=== PATIENT | female | born 1960 | race Caucasian/White ===

== ENCOUNTER 2022-01-05 14:21 | Outpatient (CLI) | payer OTHER, SELFPAY ==
--- NOTE | 2022-01-05 14:33 | US_ITS ---
STUDY: THYROID ULTRASOUND REASON FOR EXAM: Female, 61 years old. NONTOXIC GOITER TECHNIQUE: Ultrasound evaluation of the thyroid was performed with real-time and static ponce-scale imaging. COMPARISON: None. FINDINGS: RIGHT LOBE: The right lobe of the thyroid gland measures 4.9 x 1.8 x 1.5 cm. There is a homogeneous echotexture. Nodule 1:14 x 7 x 9 mm solid hypoechoic wider than tall ill-defined marginated nodule with punctate echogenic foci (TR 5) in the inferior right lobe and ultrasound-guided biopsy is recommended. LEFT LOBE: The left lobe of the thyroid gland measures 4.7 x 1.2 x 1.6 cm. There is a homogeneous echotexture. There are no demonstrated solid, cystic or complex lesions. ISTHMUS: The isthmus measures 3 mm thick. . The regional lymph nodes are normal. US/Thyroid IMPRESSION: Dominant nodule in the right lobe with possible microcalcification and ultrasound-guided biopsy is recommended. Electronically Signed: Jr Veronica MD at 17:54 EST ,
--- NOTE | 2022-01-05 14:33 | CT_ITS ---
STUDY: CT SOFT TISSUE NECK WITHOUT CONTRAST REASON FOR EXAM: Female, 61 years old. LOCALIZED SWELLING RADIATION DOSAGE (If Supplied By Facility): CTDIvol = ( 15.32 ) mGy, DLP = ( 390.33 ) mGycm TECHNIQUE: The patient was scanned in a multi-detector CT scanner. High resolution transaxial imaging was performed without the administration of intravenous contrast material. Sagittal and coronal images were reconstructed. Individualized dose optimization techniques were used for this CT. COMPARISON: None. FINDINGS: Normal bilateral parotid glands. Normal bilateral pawn broker spaces. Normal bilateral parapharyngeal spaces. Normal bilateral carotid spaces. Normal bilateral sublingual and submandibular glands and spaces. Normal visualized nasopharynx. Normal retropharyngeal space. Normal perivertebral space. Normal visualized bilateral faucial tonsils. The visualized tongue, tongue base and oropharynx are normal. The visualized cervical lymph nodes (levels I-) are within normal size limits, and maintain normal morphology. There is no demonstrated solid or cystic mass lesion. Normal epiglottis, bilateral vallecula and hypopharynx. The pre-epiglottic and paraglottic adipose spaces are normal. Normal visualized bilateral piriform sinuses, aryepiglottic folds, vocal cords, and arytenoid-cricoid articulations. Normal subglottic trachea. Normal bilateral lobes of the thyroid gland. Normal visualized pulmonary apices. Normal visualized paranasal sinuses. Normal visualized cervical spine. CT/Soft Tissue Neck without Contr IMPRESSION: Normal unenhanced CT examination of the soft tissues of the neck. Electronically Signed: Jr Veronica MD at 15:08 EST ,
== END 2022-01-05 23:59 | disposition home or self-care (01) ==
PROVIDERS: PCP Family Medicine Geriatric Medicine; Referring Provider Family Medicine Geriatric Medicine; Visit Provider Family Medicine Geriatric Medicine
DX: E04.9 Nontoxic goiter, unspecified (principal); R22.1 Localized swelling, mass and lump, neck
CPT/HCPCS: 70490; 76536

== ENCOUNTER 2022-02-05 13:32 | Outpatient (CLI) | payer OTHER, SELFPAY ==
--- NOTE | 2022-02-05 09:00 | ASPS_PTH ---
PATIENT: MANJINDER PRICE LOC: LAB U#:[id number] AGE/SX: 61/F ROOM: RE02/05/[address]: Dr. Savage Caro MD : 1960 BED: DIS: 02/05/2022 SPEC #: [id number] RECD: 02/05/22 13:26 STATUS: HOLDEN REAyaka #: [id number] RAO: 02/05/22 09:[address]: Savage Caro DEPT: CYTOLOGY RECD BY: Roseanne Fernandez ENTERED: 02/05/22 13:46 SP TYPE: ASPIRATION OTHR DR: Dr. Danilo Medina MD Tissues: Thyroid gland, NOS Procedures: Special Stain Group II Cytology Other HEADER OPERATION: Right thyroid, fine needle aspiration PRE-OP DIAGNOSIS: Right thyroid nodule TISSUE SUBMITTED: Right thyroid x6 slides DIAGNOSIS CYTOLOGY Right thyroid nodule, fine needle aspiration (smears): Consistent with benign follicular/colloid nodule. Adequate for evaluation. See comment. JOSE:juwan 02/06/2022 COMMENT Correlation with clinical, radiologic findings and appropriate follow up are necessary. CYTOLOGY STUDY Slides are reviewed. CYTOLOGY GROSS Received are six smears labeled with the patient's name and designated per the requisition as right thyroid. Submitted for staining. / juwan 02/05/2022 TC:5 CPT: 41605
== END 2022-02-05 23:59 | disposition home or self-care (01) ==
LOC: LAB 13:35
PROVIDERS: PCP Family Medicine Geriatric Medicine; Visit Provider Surgery
DX: E04.1 Nontoxic single thyroid nodule (principal)
CPT/HCPCS: 88161; 88313

== ENCOUNTER → 2022-08-04 | Outpatient (CLI) | payer OTHER, SELFPAY ==
--- NOTE | 2022-08-04 14:35 | RAD_ITS ---
STUDY: X-RAY - LUMBAR SPINE REASON FOR EXAM: Female, 62 years old. Thoracic back pain. TECHNIQUE: 3 view(s) of the lumbar spine were obtained. COMPARISON: None FINDINGS: Normal lumbar lordosis. There is no substantial scoliosis. There is a normal alignment of the vertebrae. Minimal endplate spondylosis. This vertebra at the superior endplate of bowel 4. There is disc space narrowing at L5-S1. There is no evidence of acute fracture or loss of vertebral axial height. Surgical clips are seen in the right abdomen. RAD/Lumbar Spine 2 or 3 Views IMPRESSION: Degenerative changes lumbar spine most marked at L5-S1. Electronically Signed: Ze Jo DO at 21:33 EDT ,
--- NOTE | 2022-08-04 14:35 | RAD_ITS ---
STUDY: X-RAY - THORACIC SPINE REASON FOR EXAM: Female, 62 years old. LASIX back pain for 5 weeks. TECHNIQUE: 3 view(s) of the thoracic spine were obtained. COMPARISON: Lumbar spine, 08/04/2022. FINDINGS: Normal kyphosis of the thoracic spine. There is a mild levoscoliosis with the convexity at T5 There is demineralization of the thoracic spine with endplate spondylosis. There is multilevel disc space narrowing of the thoracic spine. There is no evidence of acute fracture or loss of vertebral axial height. The soft tissue structures are unremarkable. RAD/Thoracic Spine 3 Views IMPRESSION: Degenerative changes of the thoracic spine with mild levoscoliosis. Electronically Signed: Ze Jo DO at 21:37 EDT ,
== END | disposition home or self-care (01) ==
LOC: RAD 14:33
PROVIDERS: PCP Family Medicine Geriatric Medicine; Referring Provider Family Medicine Geriatric Medicine; Visit Provider Family Medicine Geriatric Medicine
DX: M41.86 Other forms of scoliosis, lumbar region (principal); M47.814 Spondylosis without myelopathy or radiculopathy, thoracic region; M48.04 Spinal stenosis, thoracic region
CPT/HCPCS: 72072; 72100

== ENCOUNTER → 2022-08-12 | Outpatient (CLI) | payer OTHER, SELFPAY ==
--- NOTE | 2022-08-12 10:38 | CT_ITS ---
STUDY: CT CHEST with CONTRAST REASON FOR EXAM: Female, 62 years old. MASTODYNIA RADIATION DOSAGE (If Supplied By Facility): CTDIvol = ( 10.95 ) mGy, DLP = ( 493.50 ) mGycm TECHNIQUE: Transaxial imaging was performed with intravenous administration of 100 cc of ISOVUE 370. Multiplanar coronal and sagittal images were reformatted. Individualized dose optimization techniques were used for this CT. COMPARISON: No relevant priors. FINDINGS: There is evidence of bilateral breast implants. Dense rim-like calcification of the peripheral aspect of the right breast implant. Punctate calcification of the left breast implant. CHEST Hyperinflation. Mild degree of the emphysematous changes. There is no demonstrated pleural abnormality. Normal heart and pericardium. Normal mediastinum. Normal hilar regions. Normal unenhanced pulmonary arteries. Normal aorta arch and descending thoracic aorta. There are multi-level degenerative changes of the thoracic spine. Increased kyphosis. There is no demonstrated abnormality of the visualized upper abdomen. CT/Chest WITH Contrast IMPRESSION: Mild degree emphysematous changes and hyperinflation. Peripheral calcification of the right breast implant. Electronically Signed: Cholo Clark MD at 11:33 EDT ,
[2022-08-12 13:56] LABS: EGFR FINGERSTICK > 60.0000 mL/min (>60)
== END | disposition home or self-care (01) ==
LOC: CT 10:36
PROVIDERS: PCP Family Medicine Geriatric Medicine; Referring Provider Family Medicine Geriatric Medicine; Visit Provider Family Medicine Geriatric Medicine
DX: N64.4 Mastodynia (principal)
CPT/HCPCS: 71260; Q9967; A4216

== ENCOUNTER → 2022-08-26 | Outpatient (CLI) | payer OTHER, SELFPAY ==
--- NOTE | 2022-08-26 16:06 | PFTCOMP_ITS ---
COMPLETE PULMONARY FUNCTION TEST INTERPRETATION Brief HPI: Patient is a 62-year-old female, currently under the care of Dr. Medina, who presents to [facility] for complete pulmonary function tests secondary to diagnosis of emphysema. Respiratory therapist reports good effort and reproducible results. Interpretation: Forced expiration spirometry shows no large airways obstructive ventilatory defect with an FEV1 of 80% predicted. There is no significant bronchodilator response by strict ATS criteria. Spirograms are of good quality and plateau normally. The respiratory flow volume loop shows a normal pattern. Lung volumes by body plethysmography show a normal total lung capacity at 5.01 L, 95% predicted. All other lung volumes are within normal limits. Diffusion capacity by carbon monoxide is normal at 81% predicted. The airway resistance is normal. No previous pulmonary function tests were available for review. Impression: These pulmonary function tests are within normal limits. Consider bronchoprovocation study if asthma is a consideration.
== END | disposition home or self-care (01) ==
PROVIDERS: PCP Family Medicine Geriatric Medicine; Visit Provider Family Medicine Geriatric Medicine
DX: J43.9 Emphysema, unspecified (principal)
CPT/HCPCS: 94060; 94726; 94729

== ENCOUNTER → 2022-09-17 | Outpatient (CLI) | payer OTHER, SELFPAY ==
--- NOTE | 2022-09-17 08:23 | US_ITS ---
STUDY: ABDOMINAL ULTRASOUND - RIGHT UPPER QUADRANT REASON FOR VISIT: Female, 62 years old RUQ PAIN . History of prior right nephrectomy. TECHNIQUE: Ultrasound evaluation of the right upper quadrant was performed with real-time and static ponce-scale imaging. TECHNICAL QUALITY: Adequate. COMPARISON: None. FINDINGS: Liver: The liver measures 17.1 cm. There is increased echogenicity consistent with fatty infiltration. The bile ducts are within normal limits. There is hepatic color flow. The direction of portal flow is hepatopetal. There is a 2.5 cm x 1.8 cm x 1.6 cm cyst in the inferior left lobe of the liver. Gallbladder: Normal distended gallbladder. The gallbladder wall measures 1 mm. There is a negative sonographic Constantino''s sign. There is no pericholecystic fluid. There are no gallstones. Common Bile Duct (C.B.D.): The common bile duct measures 3.0 mm. Pancreas: There is atrophy of the body and tail of the pancreas with a dilated duct. There is increased echogenicity of the pancreas. There is a 1.7 cm x 2.1 cm x 1.7 cm hypoechoic mass in the head of the pancreas. Increased blood flow is seen along the periphery. A neoplastic process should be ruled out. Right Kidney: The patient is status post right nephrectomy. US/Abdomen Limited IMPRESSION: 2.5 cm by 1.8 cm x 1.6 m cyst in the left lobe of the liver. 1.7 cm x 1.7 cm x 2.1 cm hypoechoic solid mass in the head of the pancreas with dilatation of the distal portion of the pancreatic duct. The patient is status post right nephrectomy. Electronically Signed: Cholo Clark MD at 9:17 EDT ,
== END | disposition home or self-care (01) ==
LOC: US 08:22
PROVIDERS: PCP Family Medicine Geriatric Medicine; Referring Provider Family Medicine Geriatric Medicine; Visit Provider Family Medicine Geriatric Medicine
DX: K76.89 Other specified diseases of liver (principal); K86.89 Other specified diseases of pancreas; R10.11 Right upper quadrant pain; Z90.5 Acquired absence of kidney
CPT/HCPCS: 76705

== ENCOUNTER → 2022-09-28 | Outpatient (CLI) | payer OTHER, SELFPAY ==
--- NOTE | 2022-09-28 17:53 | CT_ITS ---
ACR Level 3 findings have been noted. An addendum which confirms receipt of the report will follow. STUDY: CT ABDOMEN WITH CONTRAST REASON FOR EXAM: Female, 62 years old. PAIN RADIATION DOSAGE (If Supplied By Facility): CTDIvol = ( 12.53 ) mGy, DLP = ( 608.24 ) mGycm TECHNIQUE: Transaxial images were obtained post I.V. administration of IV 100mL Isovue-370, and oral contrast. Sagittal and coronal images were reconstructed. Individualized dose optimization techniques were used for this CT. COMPARISON: None. FINDINGS: LOWER CHEST: 3 mm oval-shaped nodular focus in the right lower lobe adjacent to the fissure unchanged. LIVER: 2 cm cyst in the left lobe. Smaller low-attenuation structure in the right lobe probably a tiny low-attenuation structure in the left lobe, too small to characterize. GALLBLADDER/BILE DUCTS: Unremarkable. PANCREAS: There is a 2 x 1.6 x 1.9 cm lobulated mass in the pancreas at the mid body. The distal pancreatic duct is dilated. No adjacent stranding.. SPLEEN: Unremarkable. ADRENAL GLANDS: Unremarkable. KIDNEYS / URETERS: Right kidney is surgically absent. Left kidney unremarkable.. BOWEL / MESENTERY: A few scattered diverticula in the colon. No bowel obstruction. PERITONEUM: No free air. No free fluid. VESSELS: Abdominal aorta is normal caliber. RETROPERITONEUM: Unremarkable. ABDOMINAL WALL: Unremarkable. BONES: No acute abnormality. OTHER: Bilateral breast implants with peripheral calcifications. CT/Abdomen WITH IV Contrast IMPRESSION: 1. Pancreatic 2 cm mass suspicious for malignancy. 2. Small liver cyst. Other liver lesions too small to characterize. 3. Oval-shaped nodular focus in the right lower lobe may be scarring versus nodule. Follow-up recommended. 4. Right nephrectomy. 5. Pelvis not included. Nonstandard communication initiated to confirm receipt of report regarding positive finding. Electronically Signed: Ruthie Neal MD at 4:54 EST ,
[2022-09-28 18:30] LABS: CREATININE FINGERSTICK < 0.9 mg/dL (0.55-1.02); EGFR FINGERSTICK > 60.0000 mL/min (>60)
== END | disposition home or self-care (01) ==
PROVIDERS: PCP Family Medicine Geriatric Medicine; Referring Provider Family Medicine Geriatric Medicine; Visit Provider Family Medicine Geriatric Medicine
DX: K86.89 Other specified diseases of pancreas (principal)
CPT/HCPCS: 74160; Q9967

== ENCOUNTER → 2022-09-30 | Outpatient (CLI) | payer OTHER, SELFPAY ==
[2022-10-01 15:29] LABS: Carbohydrate AG 19-9 < 2 U/mL (0-35)
--- NOTE | 2022-10-12 14:43 | CASEMGMT ---
INCIDENTAL FINDINGS FOLLOW-UP: FINDINGS Per Mamina Shkola Abdomen CT report: LOWER CHEST:? 3 mm oval-shaped nodular focus in the right lower lobe adjacent to the fissure unchanged. LIVER:? 2 cm cyst in the left lobe.? Smaller low-attenuation structure in the right lobe probably a tiny low-attenuation structure in the left lobe, too small to characterize. GALLBLADDER/BILE DUCTS:? Unremarkable. PANCREAS:? There is a 2 x 1.6 x 1.9 cm lobulated mass in the pancreas at the mid body.? The distal pancreatic duct is dilated.? No adjacent stranding. TC to pt. Pt advised an MRI and CT has been recommended. Pt said the Physician informed her the mass is cancerous. Pt reports being referred to Mehrdad at [facility]. Pt is waiting for approval through insurance. Pt said once insurance approved, she will be scheduling necessary appointments. Complex Clinical Unit Coordinator encouraged pt to contact her if any scheduling issues arise or assistance with scheduling is needed.
--- NOTE | 2022-10-16 13:57 | CASEMGMT ---
-TC from pt. Pt advised she is having difficulty scheduling the MRI. Pt sees Dr. Medina and Dr. Cronin. Pt advised she just received approval for MRI today. Approval #[id number]. Pt attempted to schedule but is getting disconnected. Pt would like [facility] Cashier Assistant to contact scheduling if possible. Pt sounded pleasant and was kind. It was noted pt sounded overwhelmed and eager to complete the MRI. Pt stated it's difficult to wait as both doctors informed her the mass will need removed (see incidental findings note). Pt stated a [facility] is scheduled for Wednesday as insurance denied a CT. Pt plans to continue care at [facility] but is awaiting surgery approval for [facility]. -Complex Cashier Assistant called scheduling. Pura transferred the call to Harriet. Harriet advised they have not yet received the Order from Dr. Cronin's office. Once the Order is received, the office will contact pt to schedule. -Navigator called pt to advise of the above. Pt voiced understanding. Navigator offered to call Dr. Cronin's office but pt declined. Navigator encouraged pt to call with any needs.
--- NOTE | 2022-10-22 11:13 | CASEMGMT ---
-Voicemail from pt on 10/21/22 at 0614. Pt advised the MRI has been scheduled for 11/13 at 1715. Pt wondered if the MRI could be moved up at all. -Complex Wrapper Cashier returned pt's call. Pt stated Dr. Medina was able to get the MRI moved up to 10/29. Pt stated the [id number] took place. The CT scan was approved.
== END | disposition home or self-care (01) ==
LOC: POLAB3 10:44
PROVIDERS: PCP Family Medicine Geriatric Medicine; Visit Provider Family Medicine Geriatric Medicine
DX: K86.89 Other specified diseases of pancreas (principal)
CPT/HCPCS: 36415; 86301

== ENCOUNTER → 2022-10-27 | Outpatient (CLI) | payer OTHER, SELFPAY ==
--- NOTE | 2022-10-27 14:13 | CT_ITS ---
ACR Level 3 findings have been noted. An addendum which confirms receipt of the report will follow. EXAM: CT CHEST WITH INTRAVENOUS CONTRAST CLINICAL INDICATION: right sided pain x 5 months, known pancreatic mass TECHNIQUE: Helically acquired images were obtained of the chest with intravenous contrast. CTDIvol = ( 10.44 ) mGy, DLP = ( 395.21 ) mGycm This CT exam was performed using one or more of the following dose reduction techniques: automated exposure control, adjustment of the mA and/or kV according to patient size, and/or use of iterative reconstruction technique. This report was created using [employer] technology. CONTRAST: IV 100mL Isovue-300 COMPARISON: August 12, 2022 FINDINGS: INFRAHYOID NECK: Trachea is unremarkable. Thyroid is unremarkable. Esophagus is unremarkable. LUNGS AND PLEURAL SPACES: Mild emphysematous changes. No consolidation. No pleural effusions or pneumothorax. 7 mm subpleural noncalcified pulmonary nodule at the posterior lateral aspect of the left lower lobe. Small pulmonary nodule along the right oblique fissure likely represents an intrapulmonary lymph node. HEART: No cardiomegaly or pericardial effusion. No significant coronary artery calcifications. MEDIASTINUM: No mediastinal or hilar adenopathy. Esophagus is unremarkable. THYROID: See above. BONES/JOINTS: No suspicious lytic or sclerotic lesions of bone. Degenerative changes of spine multiple levels. Diffuse osteopenia. Chronic compression fractures involving the T7 and T8 vertebral bodies with mild anterior wedge deformity. No underlying pathology or retropulsion. SOFT TISSUES: Peripheral calcifications of the right breast implant. Breast implants appear fairly symmetric bilaterally. VASCULATURE: No aortic aneurysm or dissection. No obvious central pulmonary embolism although this study was not performed with the pulmonary embolism protocol. LIVER: Hepatic steatosis. ADRENALS: No adrenal masses. KIDNEYS AND URETERS: Few metallic density foci located above the right kidney and below the right adrenal gland. Focal pancreatic mass concerning for neoplasm at the level of the body of the pancreas measuring up to 2.2 cm. Distal to this level, there is atrophy of the parenchyma and main pancreatic duct dilatation. CT/Chest WITH Contrast IMPRESSION: 1. Focal pancreatic mass concerning for neoplasm at the level of the body of the pancreas measuring up to 2.2 cm. Distal to this level, there is atrophy of the parenchyma and main pancreatic duct dilatation. 2. No acute cardiopulmonary disease. 3. 7 mm subpleural noncalcified pulmonary nodule at the posterior lateral aspect of the left lower lobe. This is indeterminate and should be followed 6 months to document stability. Electronically Signed: Christiano Caldwell MD at 1:49 EST ,
== END | disposition home or self-care (01) ==
LOC: CT 14:12
PROVIDERS: PCP Family Medicine Geriatric Medicine; Referring Provider Surgery; Visit Provider Surgery
DX: R91.1 Solitary pulmonary nodule (principal); M85.80 Other specified disorders of bone density and structure, unspecified site; K86.89 Other specified diseases of pancreas; R10.31 Right lower quadrant pain; K76.9 Liver disease, unspecified
CPT/HCPCS: 71260; Q9967

== ENCOUNTER → 2022-10-29 | Outpatient (CLI) | payer OTHER, SELFPAY ==
--- NOTE | 2022-10-29 13:35 | MRI_ITS ---
INDICATION: MASS OF PANCREAS, RLQ PAIN, LIVER LESION EXAMINATION: MR Abdomen WO/W Contrast TECHNIQUE: Multiplanar and multisequence MR images of the abdomen were obtained. IV Contrast Dosage and Agent: COMPARISON: 09/28/2022 FINDINGS: LOWER CHEST: Lung bases are clear. No cardiomegaly or pericardial effusion. LIVER: Homogeneous. No focal mass. A few scattered simple cysts. GALLBLADDER AND BILIARY TREE: No filling defects in the gallbladder. No gallbladder distension or wall edema. No intra- or extrahepatic biliary ductal dilation. PANCREAS: Stable size of a 1.9 x 2.1 cm T1 heterogeneously hypointense/T2 hypointense mass in the body of the pancreas with questionable heterogeneous enhancement. There is upstream dilatation of the main pancreatic duct. SPLEEN: Normal size without focal cystic or solid mass. ADRENAL GLANDS: No nodules. KIDNEYS AND URETERS: Surgically absent right kidney. Normal left renal size and position. No hydronephrosis. PERITONEUM: No ascites or free air. No other fluid collection. LYMPH NODES: No enlarged mesenteric or retroperitoneal lymph nodes. VESSELS: Aorta is non-dilated. MRI/MRI Abd WITH and W/O Contrast IMPRESSION: Stable 2.1 cm T1 heterogeneously hypointense/T2 hypointense mass in the body of the pancreas with questionable heterogeneous enhancement. This could represent a primary cystic neoplasm such as main duct intraductal papillary mucinous neoplasm (IPMN). There is associated upstream dilatation of the main pancreatic duct. Due to questionable heterogenous arterial enhancement, consider endoscopic ultrasound with fine-needle aspiration. Electronically Signed: Jose David Wood MD at 18:55 EST ,
== END | disposition home or self-care (01) ==
LOC: MRI 13:28
PROVIDERS: PCP Family Medicine Geriatric Medicine; Referring Provider Surgery; Visit Provider Surgery
DX: K86.89 Other specified diseases of pancreas (principal); R10.31 Right lower quadrant pain; K76.9 Liver disease, unspecified; R91.1 Solitary pulmonary nodule
CPT/HCPCS: 74183; A9575; A4216

== ENCOUNTER 2022-11-07 13:57 | Emergency (ER) | payer OTHER, SELFPAY ==
[2022-11-07 13:58] VITALS: BP 161/92; PULSE 106; RESP 18; TEMP 36; O2SAT 99; BMI 30.7
--- NOTE | 2022-11-07 14:04 | RAD_ITS ---
STUDY: X-RAY CHEST REASON FOR EXAM: Female, 62 years old. chest pain TECHNIQUE: XR Chest 1 View COMPARISON: Prior comparison studies are not available for review at this time. FINDINGS: There is atherosclerotic calcification of the aortic arch with tortuosity. There are diffuse degenerative changes of the visualized thoracic spine. There is degenerative osteoarthritis of the bilateral shoulders. There is no demonstrated pleural abnormality. Calcified right breast implant. Normal size heart. Normal mediastinum and alfred. Normal visualized pulmonary arteries. There is no demonstrated abnormality of the visualized soft tissue structures of the upper abdomen. RAD/Chest 1 View (Portable) IMPRESSION: There are no acute findings. Electronically Signed: Des Holt MD at 15:04 EST ,
--- NOTE | 2022-11-07 14:14 | NURSING ---
NO OLD EKGS
[2022-11-07 14:42] LABS: Absolute Lymphocyte Count 0.92 X10^3/uL (0.83-4.51); Basophil# 0.04 X10^3/uL; Basophil% 0.6 % (0-1); Eosinophil# 0.03 X10^3/uL; Eosinophils% 0.5 % (0-5); Hematocrit 43.9 % (37-47); Hemoglobin 14.3 g/dL (12.0-15.0); Lymphocyte # 0.92 X10^3/ul (0.83-4.51); Lymphocyte % 14.9 % (19-41); Mean Corp Hgb Conc 32.6 g/dL (32-36); Mean Corpuscular Hgb 29.9 pg (27.0-32.0); Mean Corpuscular Volume 91.8 fL (81-99); Monocyte# 1.14 X10^3/uL; Monocyte% 18.4 % (0-10); NRBC Flagged by Analyzer 0 % (0-5); Neutrophil # 4.03 X10^3/uL (2.7-7.7); Neutrophil % 65.1 % (47-70); Platelet Count 299 K/mm3 (150-450); RBC Distribution Width CV 12.8 % (11.6-14.6); RBC Distribution Width SD 43.7 fl (35.1-43.9); Red Blood Count 4.78 M/mm3 (4.2-5.4); White Blood Count 6.2 K/mm3 (4.4-11.0)
[2022-11-07 14:43] VITALS: O2SAT 97
[2022-11-07 14:53] LABS: Prothrombin Time (Protime)PT. 13.3 SECONDS (11.7-14.9)
[2022-11-07 15:03] LABS: Anion Gap 6 (5-15); BUN 9 mg/dL (7-18); BUN/Creat Ratio 10.9 RATIO (10-20); Calcium,Total 9.3 mg/dL (8.5-10.1); Chloride 100 mmol/L (98-107); Creatinine, Serum 0.83 mg/dL (0.55-1.02); EST Glomerular Filtration Rate 74 mL/min (>60); Est Glom Filt Rate - Afr Amer 89 mL/min (>60); Glucose 98 mg/dL (74-106); Potassium 3.4 mmol/L (3.5-5.1); Sodium Level 132 mmol/L (136-145); Troponin-I HS 5 pg/mL (3.0-54.0)
--- NOTE | 2022-11-07 15:12 | ED.VIS.CHEST ---
HPI History of Present Illness Chief Complaint: Chest Pain Informant: patient Onset/Context/Timing Onset: Yesterday Activity at onset: gradual and onset Timing: Continuous Quality: Positive for Burning, Pain and Pressure Location: Substernal (more lower) Current Severity: Moderate Maximum Severity: Moderate Worsened By: - (lying supine); Not Worsened By Exertion, Breathing or Coughing Relieved By: Nothing (tried APAP w/ cod, tums) Associated Symptoms: Positive for Nausea and Cough (chronic, worse since yest); Negative for Vomiting, Diaphoresis, Dyspnea, Fever, Lightheadedness or Palpitations Narrative Narrative: Patient presenting with chest discomfort. Started yesterday evening. Yesterday afternoon she had an EGD, possibly including an ERCP in order to have a biopsy done of a pancreatic mass. This was found on CT and also seen on MRI here recently. [place] Biopsies are pending but according to documentation they have, they suspect the etiology is either neuroendocrine tumor or PDAC. She had some tea on her way home and felt okay but after being at home for an hour or so started having this chest burning, radiates into her upper back by her shoulder blades bilaterally, she ate oatmeal and subsequently 10 minutes later or so, the discomfort became worse and has been worse since then and constant. Nonpleuritic. No dyspnea. Nausea but no vomiting. She states postprocedurally in recovery, she had a lot of abdominal pain and was given fentanyl without settle that down before they were sent home. [facility] Medical History Arthritis Back problem Breast lump in female Gastrointestinal problem High cholesterol History of frequent headaches IBS (irritable bowel syndrome) Migraines Osteoarthritis POTS (postural orthostatic tachycardia syndrome) Scoliosis Seasonal allergies Skin cancer UTI (urinary tract infection) Home Medications ascorbate calcium (vitamin C) 500 mg tablet 500 mg PO DAILY 02/03/22 [History Last Taken Unknown] calcium carbonate 600 mg-vitamin D3 12.5 mcg (500 unit) capsule (Calcium 600 with Vitamin D3) cap PO 02/03/22 [History Last Taken Unknown] vit C 250 mg-vit E 90 mg-zinc 40 mg-copper 1 [id number] capsule (PreserVision AREDS-2) 1 tab PO BID 02/03/22 [History Last Taken Unknown] triamcinolone acetonide 55 mcg nasal spray aerosol (Nasacort Allergy) 1 spray intranasal DAILY 02/05/22 [History Last Taken Unknown] ubrogepant 100 mg tablet (Ubrelvy) 100 mg PO ONCE 02/05/22 [History Last Taken Unknown] amoxicillin 875 mg-potassium clavulanate 125 mg tablet 875 mg PO Q12H #20 TABLETS 11/07/22 [Rx Last Taken Unknown] metoclopramide HCl 10 mg tablet 10 mg PO Q6H PRN nausea and vomiting #12 tabs 11/07/22 [Rx Last Taken Unknown] Allergy/AdvReac Type Severity Reaction Status Date / Time tramadol [From Ultram] Allergy Severe Other Verified 11/07/22 13:58 chlorpheniramine Allergy Other Verified 11/07/22 13:58 [From Nolamine] phenindamine [From Nolamine] Allergy Other Verified 11/07/22 13:58 phenylpropanolamine Allergy Other Verified 11/07/22 13:58 [From Nolamine] adhesive tape AdvReac Intermediate Other Verified 11/07/22 13:58 methylprednisolone AdvReac Intermediate Diarrhea Verified 11/07/22 13:58 [From Medrol] morphine AdvReac Intermediate Rash Verified 11/07/22 13:58 Family History Brother Asthma Heart disease Melanoma Mother Arthritis High blood cholesterol Osteoporosis Alzheimer disease Father Arthritis Heart disease Hypertension High blood cholesterol Kidney disease CVA (cerebral vascular accident) Surgical History History of kidney surgery History of nephrectomy History of shoulder surgery S/P thyroid biopsy (~01/2022) Social History Smoking Status: Never smoker alcohol intake: current details: wine 2 to 3 x month ROS ROS ED Constitutional Constitutional ED: Denies chills or fever(s) Eyes Eyes: Denies change in vision or diplopia ENT ENT ED: Denies rhinorrhea or sore throat Cardiovascular Cardiovascular: Reports chest pain; Denies palpitations Respiratory/Chest Respiratory/Chest: Reports cough; Denies dyspnea Gastrointestinal Gastrointestinal: Reports abdominal pain and nausea; Denies diarrhea or vomiting Genitourinary Genitourinary ED: Denies dysuria or hematuria Musculoskeletal Musculoskeletal: Reports back pain; Denies neck pain Integumentary Denies abscess or rash Neurologic Neurologic: Denies headache(s), paresthesias or weakness Psychiatric Psychiatric: Denies anxiety or suicidal thoughts EXAM Physical Exam Const Vital Signs: 11/07/22 13:58 11/07/22 14:43 11/07/22 16:49 Temperature 96.8 F L Temperature Source Temporal Pulse Rate 106 H Respiratory Rate 18 16 Blood Pressure 161/92 H 149/81 H Blood Pressure Mean 115 103 Pulse Ox 99 97 Oxygen Delivery Method Room Air Room Air Room Air 11/07/22 16:52 Temperature Temperature Source Pulse Rate 107 H Respiratory Rate Blood Pressure 149/81 H Blood Pressure Mean Pulse Ox Oxygen Delivery Method Positive well nourished and well developed General Appearance ED: well developed and NAD HEENT Reports moist mucous membranes normocephalic and atraumatic Eyes PERRL and EOMs intact bilaterally Neck full ROM and supple Chest Wall inspection of chest normal and palpation of chest normal Resp normal respiratory effort and clear to auscultation bilaterally Cardio regular rate, regular rhythm and no murmurs Rate: other Other Details: Mild tachycardia GI non-distended GI Narrative: Mild epigastric tenderness no guarding or rebound no Constantino sign or other tenderness, no pulsatile mass Auscultation: normoactive bowel sounds Palpation: soft Back/Spine no CVA tenderness General Back: other FROM Extremity normal to inspection General Extremety ED: Negative for edema, pulses abnormal or tenderness General Extremity: Negative for edema or pulses abnormal Neuro oriented x3, CN's II-XII intact bilaterally and no sensory deficits noted Sensorium / Orientation: awake and alert Motor Exam: strength 5/5 throughout Psych mental status grossly normal Skin no rashes or lesions noted and no wounds Heart Score History: Slightly/Non-Suspicious ECG: Normal Age: >45 - <65 years Risk Factors: 1 or 2 Risk Factors (mild obesity) Troponin: </= Normal Limit Score: 2 MDM MDM MDM Narrative Medical decision making narrative: Initially, patient has EKG, labs, chest x-ray 1 view my interpretation all normal/negative. She has ongoing chest discomfort, a GI cocktail she thinks may have helped a little transiently but 5 or 10 minutes later her pain is the same as it was before. Therefore I offered her nitroglycerin, as well as Tylenol to prevent headache, and we gave her a liter of IV fluids because she has been drinking a lot and I suspect that the mild tachycardia is due to that. However subsequently she started having worsening discomfort. We repeated EKG it is still normal. Given all of this and the fact that she likely does have active cancer although this has not been definitively proven with biopsy results yet, I sending her for CT angiography of the chest to rule out pulmonary embolus and dissection and other life-threatening problems. This was negative for those, but did show an occult retrocardiac left lower lobe pneumonia that was not seen on the chest x-ray. She is feeling much better after we gave her Reglan for more nausea, her chest discomfort is significantly improved. At this time I see no evidence of a life threat or concern for this being cardiac in etiology, the pneumonia could be related, we will treat that, she has not hypoxic and doing well and stable for discharge home I answered all questions at the bedside. Lab Data Attestation: I reviewed the patient's lab results. Labs: Laboratory Results - last 24 hr 11/07/22 11/07/22 11/07/22 14:34 14:34 14:34 WBC 6.2 RBC 4.78 Hgb 14.3 Hct 43.9 MCV 91.8 MCH 29.9 MCHC 32.6 RDW Std Deviation 43.7 RDW Coeff of Octavio 12.8 Plt Count 299 MPV 8.0 Immature Gran % (Auto) 0.500 Neut % (Auto) 65.1 Lymph % (Auto) 14.9 L [place] % (Auto) 18.4 H Eos % (Auto) 0.5 Baso % (Auto) 0.6 Absolute Neuts (auto) 4.0 Absolute Lymphs (auto) 0.92 Nucleated RBC % 0 PT 13.3 INR 1.0 Sodium 132 L Potassium 3.4 L Chloride 100 Carbon Dioxide 26.0 Anion Gap 6 BUN 9 Creatinine 0.83 Estim Creat Clear Calc 64.10 Est GFR (MDRD) Af Amer 89 Est GFR (MDRD) Non-Af 74 BUN/Creatinine Ratio 10.9 Glucose 98 Calcium 9.3 Troponin I High Sens 5 Radiography Diagnostic Testing: Clinical Impression(s) from Imaging Studies Chest X-Ray 11/07/22 14:04 IMPRESSION: There are no acute findings. Electronically Signed: Des Holt MD at 15:04 EST , Chest CTA 11/07/22 17:57 IMPRESSION: 1. No demonstrated pulmonary embolism or arterial dissection. 2. Left lower lobe infiltrate suggesting pneumonia. This obscures visualization of the left lower lobe nodule. 3. Stable partially seen mass of the pancreas. Electronically Signed: Des Holt MD at 18:58 EST , Rhythm Strip Rhythm Strip: Sinus Tach Rate: 104 Ectopy: None EKG Initial EKG: Attestation: I personally reviewed and interpreted this EKG as follows: Interpretation: No Acute Injury Pattern and Sinus Tachycardia (otherwise nml EKG) Follow-up EKG: Attestation: I personally reviewed and interpreted this EKG as follows: Interpretation: No Acute Injury Pattern and Sinus Tachycardia Prior: Unchanged Discharge Plan Triage Chief Complaint: Chest Pain ED Provider: Don Sidhu Dx/Rx/DC Orders Clinical Impression: Chest pain, unspecified, Pneumonia Instructions: ED Pneumonia (Adult) Prescriptions: New metoclopramide HCl [metoclopramide HCl] 10 mg tablet 10 mg PO Q6H PRN (Reason: nausea and vomiting) Qty: 12 0RF amoxicillin-pot clavulanate [amoxicillin-pot clavulanate] 875-125 mg tablet 875 mg PO Q12H Qty: 20 0RF No Action PreserVision AREDS-2 250-90-40-1 mg capsule 1 tab PO BID calcium carbonate-vitamin D3 [Calcium 600 with Vitamin D3] 600 mg-12.5 mcg (500 unit) capsule PO ascorbate calcium (vitamin C) 500 mg tablet 500 mg PO DAILY Ubrelvy 100 mg tablet 100 mg PO ONCE Rx Instructions: as a single dose; may repeat once in >=2 hours after first dose if needed triamcinolone acetonide [Nasacort Allergy] 55 mcg aerosol,spray 1 spray intranasal DAILY Rx Instructions: administer into each nostril Primary Care Provider: Danilo Medina Chi Referrals: Danilo Medina Chi, MD [Primary Care Provider] - 3-5 Days Disposition Disposition: Home, Self Care
[2022-11-07] MEDS: Mag Hydrox/Al Hydrox/Simeth 30 ML UDC PO (15:19)
[2022-11-07] MEDS: Ondansetron 4 MG/2 ML Vial IV (15:19)
[2022-11-07 16:49] VITALS: BP 149/81; RESP 16
[2022-11-07 16:52] VITALS: BP 149/81; PULSE 107
[2022-11-07] MEDS: 0.9% Normal Saline 1,000 ML 999 ML IV (16:52)
[2022-11-07] MEDS: Acetaminophen 500 MG Tablet 1000 MG PO (16:52)
[2022-11-07] MEDS: Nitroglycerin SL (ED/IMG/CATH) 0.4 MG TABLET SL (16:52)
--- NOTE | 2022-11-07 17:57 | CT_ITS ---
EXAM: CT ANGIOGRAPHY CHEST WITHOUT AND WITH INTRAVENOUS CONTRAST CLINICAL INDICATION: chest pain, cancer, tachycardia, concern for PE PT HAD A UPPER SCOPE DONE YESTERDAY TO LOOK FOR PANCREATIC MASS,HAS HAD CHEST PAIN AND NAUSEA SINCE THEN TECHNIQUE: Helically acquired angiography images were obtained of the chest without and with intravenous contrast. This CT exam was performed using one or more of the following dose reduction techniques: automated exposure control, adjustment of the mA and/or kV according to patient size, and/or use of iterative reconstruction technique. This report was created using [employer] report generation technology. MIP reconstructed images were created and reviewed. CONTRAST: IV 100mL Isovue-370 RADIATION DOSE: CTDIvol = 12.37 mGy, DLP = 432.21 mGy-cm COMPARISON: CT 10.27.22 FINDINGS: PULMONARY ARTERIES: No demonstrated pulmonary embolism or arterial dissection. AORTA: Unremarkable. Normal in caliber. No evidence of dissection. GREAT VESSELS OF AORTIC ARCH: Unremarkable. Normal in caliber. No evidence of dissection. LUNGS AND PLEURAL SPACES: Left lower lobe infiltrate suggesting pneumonia. This obscures visualization of the left lower lobe nodule. No pleural effusion or thickening. HEART: Unremarkable. Heart size is normal. No pericardial effusion. No signs of right heart strain, ratio of right ventricle to left ventricle measures less than 1. MEDIASTINUM: Unremarkable. No mediastinal or hilar adenopathy. Esophagus is unremarkable. No hiatal hernia. THYROID: Unremarkable. No thyroid lesions. BONES/JOINTS: There are degenerative changes of the shoulders. There are multi-level degenerative changes of the thoracic spine. No suspicious lytic or blastic abnormality. SOFT TISSUES: There are bilateral breast implants. LIVER: Stable hepatic hypodensity. PANCREAS: Stable partially seen mass of the pancreas. CT/CTA Chest W/WO Contrast IMPRESSION: 1. No demonstrated pulmonary embolism or arterial dissection. 2. Left lower lobe infiltrate suggesting pneumonia. This obscures visualization of the left lower lobe nodule. 3. Stable partially seen mass of the pancreas. Electronically Signed: Des Holt MD at 18:58 EST ,
[2022-11-07] MEDS: Metoclopramide 10 MG/2 ML Vial 5 MG IV (18:12)
[2022-11-07 20:50] VITALS: BP 148/68
== END 2022-11-07 20:50 | disposition home or self-care (01) ==
PROVIDERS: Emergency Provider Emergency Medicine; PCP Family Medicine Geriatric Medicine; Visit Provider Emergency Medicine
DX: R07.9 Chest pain, unspecified (principal); J18.9 Pneumonia, unspecified organism
CPT/HCPCS: 71045; 71275; 80048; 84484; 85025; 85610; 93005; 96361; 96365; 96375; 99285; J7030; Q9967; A4216; J2405

== ENCOUNTER → 2022-12-30 | Outpatient (CLI) | payer OTHER, SELFPAY ==
--- NOTE | 2022-12-30 12:25 | ECHOD_ITS ---
Reason For Study: DYSPNEA/SOB Procedure This was a 2D Doppler, Color Flow transthoracic echocardiogram. Exam performed in department. Left Ventricle Normal size and thickness. The left ventricular ejection fraction is 70 %. Left ventricular systolic function is hyperdynamic. Normal diastololic function. Right Ventricle Normal right ventricle. Atria The left and right atria are normal. Mitral Valve The mitral valve is structurally normal. No prolapse or stenosis seen. Tricuspid Valve Trivial tricuspid valve insufficiency. Normal pulmonary artery pressure. Aortic Valve Trisinus/trileaflet aortic valve. Trivial aortic valve insufficiency. Pulmonic Valve The pulmonic valve is not well visualized. Great Vessels Normal sized aortic root. Pericardium/Pleural No pericardial effusion. MMode/2D Measurements & Calculations LVIDd: 3.9 cm IVSd: 0.87 cm Ao root diam: 3.2 cm LVIDs: 2.5 cm LVPWd: 0.81 cm RVDd: 2.9 cm FS: 34.4 % LAV(MOD-bp): 23.6 ml LVAd ap4: 23.3 cm2 SV(MOD-sp4): 40.2 ml LAV(MOD-bp) Indexed: 12.1 ml/m2 LVLd ap4: 7.3 cm LAV(MOD-sp2): 23.4 ml EDV(MOD-sp4): 59.2 ml LAV(MOD-sp4): 23.8 ml EDV(sp4-el): 63.1 ml LVAs ap4: 11.6 cm2 LVLs ap4: 6.1 cm ESV(MOD-sp4): 19.0 ml ESV(sp4-el): 18.7 ml EF(MOD-sp4): 67.9 % EF(sp4-el): 70.3 % SV(sp4-el): 44.4 ml LA A4 area: 10.9 cm2 LA dimension(2D): 3.4 cm RA A4 area: 10.0 cm2 Time Measurements MV dec time: 0.11 sec Doppler Measurements & Calculations MV E max sumeet: 51.2 cm/sec Lat Peak E' Sumeet: 10.3 cm/sec Med Peak E' Sumeet: 6.7 cm/sec MV A max sumeet: 89.8 cm/sec E/E' lat: 5.0 E/E' med: 7.7 MV E/A: 0.57 Ao V2 max: 107.8 cm/sec LV V1 max: 109.9 cm/sec PA V2 max: 85.7 cm/sec Ao max P.6 mmHg LV V1 max P.8 mmHg TR max sumeet: 258.0 cm/sec TR max P.6 mmHg ECHO/Echo Complete Interpretation Summary The left ventricular ejection fraction is 70 %. Left ventricular systolic function is hyperdynamic. Ordering Physician: Marcia Carreno Referring Physician: IRIS PARSON Performed By: Meera Baker RDCS
--- NOTE | 2022-12-31 10:59 | STRESSREP ---
Stress Test Report Date: 12/30/2022 Procedure: Exercise tolerance test Indications: Preoperative evaluation Consent: Per the patient Procedure: The patient exercised on a Benito protocol for 6 minutes and 10 seconds achieving a peak heart rate of 166 bpm (106% predicted maximal heart rate) with a peak blood pressure 178 over mmHg and a peak MET capacity of approximately 7.5 MET's. The baseline ECG demonstrated normal sinus rhythm. The peak exercise ECG demonstrated no ischemic change. There were no cardiac dysrhythmias pretest, during exercise, or recovery. The functional capacity was considered average. The patient had no complaints of chest discomfort during exercise or recovery. The examination was discontinued secondary to target heart rate being achieved. Impression: 1. Technically adequate (percent predicted maximal heart rate greater than 85%) exercise tolerance test 2. Peak exercise ECG with no ischemic changes. Negative stress test for ischemia and for angina. 3. There were no cardiac dysrhythmias during exercise or recovery This note was generated with [employer] software. It may contain incorrect words, spelling, and punctuation that were not noted in checking the note before signing.
== END | disposition home or self-care (01) ==
LOC: CVS 12:25
PROVIDERS: PCP Family Medicine Geriatric Medicine; Visit Provider Internal Medicine Cardiovascular Disease
DX: Z01.810 Encounter for preprocedural cardiovascular examination (principal); R06.09 Other forms of dyspnea; R93.1 Abnormal findings on diagnostic imaging of heart and coronary circulation
CPT/HCPCS: 93017; 93306

== ENCOUNTER → 2023-03-01 | Outpatient (CLI) | payer OTHER, SELFPAY ==
--- NOTE | 2023-03-01 12:33 | CT_ITS ---
STUDY: CT ABDOMEN AND PELVIS WITH CONTRAST REASON FOR EXAM: Female, 62 years old. Pancreatic protocol. History of pancreatic carcinoma and a surgical resection. The patient status post splenectomy and right nephrectomy. RADIATION DOSAGE (If Supplied By Facility): CTDIvol = ( 19.95 ) mGy, DLP = ( 920.10 ) mGycm TECHNIQUE: Transaxial images were obtained from the dome of the diaphragm to the symphysis pubis without oral contrast. IV 100mL Isovue-300 was administered. Sagittal and coronal images were reconstructed. Individualized dose optimization techniques were used for this CT. COMPARISON: Comparison is made with prior examination dated September 28, 2022. FINDINGS: Stable 7 mm rounded density in the posterior aspect of the lingular segment of the left upper lobe. Stable 2 mm noncalcified nodule in the peripheral lateral aspect of the right lower at the level of the right oblique fissure. The visualized portions of the heart are within normal limits. Stable appearance of the bilateral breast implants with air rim calcification more prominent in the right breast. There is decreased attenuation of the liver consistent with steatosis. 5 mm cyst in the midportion of the right lobe of the liver. Stable 1.9 cm x 1.9 cm cyst in the medial aspect of the left lobe of the liver. Normal gallbladder and extrahepatic biliary system. The patient is status post splenectomy. The patient is status post resection of the body and tail portions of the pancreas. The previously seen mass lesion has been resected. Normal bilateral adrenal glands. The patient is status post right nephrectomy. Normal left kidney. Normal visualized stomach. Normal small intestine. There are multiple colonic diverticula consistent with diverticulosis. The appendix is visualized and appears normal. Normal abdominal aorta. Normal inferior vena cava. Normal retroperitoneum. Normal urinary bladder. There is a 5.6 cm x 2.4 cm well-defined fluid collection deep to the left rectus abdominal muscle most likely postoperative seroma. There are degenerative changes of the visualized lumbar spine. CT/Abdomen/Pelvis WITH Contrast IMPRESSION: Status post resection of the body and tail portions of the pancreas. Fatty infiltration of the liver. Stable hepatic cysts. Status post right nephrectomy and splenectomy. 5.6 times 2 x 2 0.4 cm well-defined fluid collection deep to the left rectus abdominal muscle most likely postoperative seroma. Electronically Signed: Cholo Clark MD at 13:19 EDT ,
--- NOTE | 2023-03-01 12:33 | US_ITS ---
EXAM: US SOFT TISSUES HEAD AND NECK, THYROID CLINICAL INDICATION: thyroid nodule TECHNIQUE: Brito scale and color doppler imaging was performed of the thyroid gland. This report was created using [employer] report generation technology. COMPARISON: US Thyroid dated 01/05/2022 FINDINGS: LEFT THYROID LOBE: Left thyroid lobe measures 4.3 x 1.2 x 1.4 cm. Homogeneous echotexture with normal vascularity. No thyroid nodules are present. RIGHT THYROID LOBE: Right thyroid lobe measures 5.5 x 1.7 x 1.6 cm. Stable 12 mm right thyroid nodule appearing wider than tall, well-defined with focal calcification. TI-RADS points: 4. TI-RADS category: TR4. This nodule is moderately suspicious. Recommend follow-up thyroid ultrasounds at 1, 2 and 4 years. Echogenicity is otherwise normal . ISTHMUS: Isthmus measures 2 mm in AP dimension. No thyroid nodules are present. US/Thyroid IMPRESSION: Stable right thyroid nodule. Recommend 12 month follow-up. Electronically Signed: Jagdeep Blood MD at 9:25 EDT ,
== END | disposition home or self-care (01) ==
PROVIDERS: PCP Family Medicine Geriatric Medicine; Visit Provider Surgery
DX: K65.9 Peritonitis, unspecified (principal); Z90.411 Acquired partial absence of pancreas
CPT/HCPCS: 74177; 76536; Q9967; A4216

== ENCOUNTER → 2023-04-01 | Outpatient (CLI) | payer OTHER, SELFPAY ==
--- NOTE | 2023-04-01 13:09 | VDLE_ITS ---
Reason For Study: Rt Leg Edema RIGHT LEFT GSV is normal. CFV is compressible, spontaneous, phasic, CFV is compressible, spontaneous, phasic, competent, and demonstrates normal competent and demonstrates normal augmentation. augmentation. FV is compressible, spontaneous, phasic, competent and demonstrates normal augmentation. POP V is compressible, spontaneous, phasic, competent and demonstrates normal augmentation. T/P Trunk is compressible. PTV is compressible. RT PerV is compressible. RT mid calf accessory saphenous vein is DILATED and NONCOMPRESSIBLE with intraluminal echoes. Procedure This is a venous duplex using B-mode, color flow and spectral Doppler. Exam performed in department. The exam was diagnostic. A preliminary report was called and/or faxed to Dr. Medina. VL/Venous Duplex US, Unilateral Interpretation Summary There is no evidence of right lower extremity deep vein thrombosis. Superficial thrombophlebitis right mid calf accessory saphenous vein. Patent and compressible right great saphenous vein Normal flow patterns left common femoral vein Ordering Physician: Danilo Medina Chi Referring Physician: Danilo Medina Chi Performed By: Anirudh Whitehead RVT
== END | disposition home or self-care (01) ==
LOC: CVS 13:07
PROVIDERS: PCP Family Medicine Geriatric Medicine; Referring Provider Family Medicine Geriatric Medicine; Visit Provider Family Medicine Geriatric Medicine
DX: R60.0 Localized edema (principal)
CPT/HCPCS: 93971

== ENCOUNTER → 2023-05-12 | Outpatient (CLI) | payer OTHER, SELFPAY ==
--- NOTE | 2023-05-12 13:23 | CT_ITS ---
STUDY: CT CHEST WITH CONTRAST REASON FOR EXAM: Female, 62 years old. F/U PANCREAS NEUROENDOCRINE TUMOR -- S/P DISTAL PANCREATECTOMY 01/2023, RT NEPHRECTOMY, BREAST IMPLANTS, RECENT NEW RT ANT LUMP IN CHEST, SPLEEN REMOVED RADIATION DOSAGE (If Supplied By Facility): CTDIvol = ( 15.73 ) mGy, DLP = ( 2321.73 ) mGycm TECHNIQUE: Transaxial imaging was performed following intravenous administration of IV 100mL Isovue-370. Multiplanar coronal and sagittal images were reformatted. Individualized dose optimization techniques were used for this CT. COMPARISON: Comparison is made with prior CT scan of the chest dated October 27, 2022. FINDINGS: CHEST Stable appearance of the bilateral breast implants. Stable calcification along the posterior margin of the right breast implant. Stable mild scarring along the posterior aspect of the lingular segment of the left lower lobe. Stable 7 mm subpleural noncalcified pulmonary nodule in the posterolateral aspect of the left lower lobe as seen on axial image #80. There is no demonstrated pleural abnormality. Normal heart and pericardium. No evidence of coronary artery calcification. Normal mediastinum. Normal hilar regions. Normal unenhanced pulmonary arteries. Normal aorta arch and descending thoracic aorta. There are degenerative changes of the thoracic spine. CT/Chest WITH Contrast IMPRESSION: Stable examination. No acute abnormality is seen. Electronically Signed: Cholo Clark MD at 14:32 EDT ,
--- NOTE | 2023-05-12 13:23 | CT_ITS ---
STUDY: CT ABDOMEN AND PELVIS WITH AND WITHOUT CONTRAST REASON FOR EXAM: Female, 62 years old. Pancreatic protocol. Follow-up for pancreas neuroendocrine tumor. The patient is status post distal pancreatectomy as well as right nephrectomy and splenectomy. RADIATION DOSAGE (If Supplied By Facility): CTDIvol = ( 15.73 ) mGy, DLP = ( 2321.73 ) mGycm TECHNIQUE: Transaxial images were obtained from the dome of the diaphragm to the symphysis pubis without oral contrast. IV 100mL Isovue-370 was administered. Sagittal and coronal images were reconstructed. Individualized dose optimization techniques were used for this CT. COMPARISON: Comparison is made with prior examination dated March 01, 2023. FINDINGS: Stable appearance of the bilateral breast implants. There is decreased attenuation of the liver consistent with steatosis. Small stable cysts in the liver. The gallbladder is contracted. The patient is status post splenectomy. Once again, the patient is status post resection of the body and tail portions of the pancreas. This is unchanged. The patient is status post right nephrectomy. Normal left kidney. Normal visualized stomach. Normal small intestine. Normal colon. The appendix is visualized and appears normal. Normal abdominal aorta. Normal inferior vena cava. Normal retroperitoneum. Normal urinary bladder. The previously seen fluid collection deep to the left rectus abdominal musculature is not seen at this time. There are mild degenerative changes of the visualized lumbar spine. CT/CT Abd/Pelvis W/WO Contrast IMPRESSION: Status post resection of the body and tail portions of the pancreas. Stable hepatic cysts. Status post right nephrectomy and splenectomy. The previously seen fluid collection along the left rectus abdominal musculature has resolved. Electronically Signed: Cholo Clrak MD at 14:36 EDT ,
[2023-05-12 13:58] LABS: CREATININE FINGERSTICK < 0.9 mg/dL (0.55-1.02); EGFR FINGERSTICK > 60.0000 mL/min (>60)
== END | disposition home or self-care (01) ==
LOC: CT 13:21
PROVIDERS: PCP Family Medicine Geriatric Medicine; Referring Provider Internal Medicine Hematology & Oncology; Visit Provider Internal Medicine Hematology & Oncology
DX: D3A.8 Other benign neuroendocrine tumors (principal)
CPT/HCPCS: 71260; 74178; Q9967

== ENCOUNTER → 2023-08-05 | Outpatient (CLI) | payer MEDICARE, OTHER, SELFPAY ==
--- NOTE | 2023-08-05 12:33 | BI_ITS ---
MAMMOGRAPHY - BILATERAL SCREENING REASON FOR EXAM: Female, 63 years old. Routine annual screening examination. PERTINENT HISTORY: Non-contributory. Bilateral breast implants. TECHNIQUE: Digital bilateral breast manish (3D mammographic acquisition) in the CC and MLO projections. 2-D mediolateral oblique (MLO) and craniocaudad (CC) views of both breasts were obtained. CAD: Full Field Digital Mammography with Computer Added Detection was performed. COMPARISON: Comparison is made with prior abdomen examination dated July 29, 2021. FINDINGS: Breast Composition: There are scattered areas of fibroglandular density. There are no dominant masses or suspicious calcifications. Stable appearance of the bilateral breast implants. Stable calcifications of the right breast implant. Stable calcification in the anterior aspect of the left breast implant. No other significant abnormalities are identified. There has been no significant change since the prior study. BI/SCRN MAMM (CAD)W/MANISH BILAT IMPRESSION: Stable bilateral screening mammogram. Yearly follow-up mammogram recommended. (A) ASSESSMENT CATEGORY: BIRADS Category 2: Benign. A letter regarding these results will be sent to the patient by the facility within 30 days. Approximately 10% of breast cancers are not detected by mammography. A normal mammogram should not delay biopsy of a clinically suspicious abnormality. [id number] Electronically Signed: Cholo Clark MD at 13:43 EDT ,
== END | disposition home or self-care (01) ==
LOC: OPBI 12:32
PROVIDERS: PCP Family Medicine Geriatric Medicine; Referring Provider Internal Medicine Hematology & Oncology; Visit Provider Internal Medicine Hematology & Oncology
DX: Z12.31 Encounter for screening mammogram for malignant neoplasm of breast (principal)
CPT/HCPCS: 77063; 77067

== ENCOUNTER → 2023-09-07 | Outpatient (CLI) | payer MEDICARE, OTHER, SELFPAY ==
[2023-09-07 12:37] LABS: Absolute Lymphocyte Count 3.03 X10^3/uL (0.83-4.51); Absolute Neutrophil Count 3.4 X10^3/uL (2.0-7.7); Basophil# 0.11 X10^3/uL; Basophil% 1.5 % (0-1); Eosinophil# 0.23 X10^3/uL; Eosinophils% 3.1 % (0-5); Hematocrit 45.3 % (37-47); Hemoglobin 14.9 g/dL (12.0-15.0); Lymphocyte # 3.03 X10^3/ul (0.83-4.51); Lymphocyte % 40.3 % (19-41); Mean Corp Hgb Conc 32.9 g/dL (32-36); Mean Corpuscular Hgb 29.6 pg (27.0-32.0); Mean Corpuscular Volume 89.9 fL (81-99); Mean Platelet Vol. 9.3 fl (6.2-12.0); Monocyte% 9.3 % (0-10); NRBC Flagged by Analyzer 0 % (0-5); Neutrophil # 3.43 X10^3/uL (2.7-7.7); Neutrophil % 45.5 % (47-70); Platelet Count 462 K/mm3 (150-450); RBC Distribution Width CV 13.9 % (11.6-14.6); RBC Distribution Width SD 45.8 fl (35.1-43.9); Red Blood Count 5.04 M/mm3 (4.2-5.4); White Blood Count 7.5 K/mm3 (4.4-11.0)
[2023-09-07 12:55] LABS: ALB/GLOB Ratio 0.9 RATIO (0.9-2.4); AST(SGOT) 20 U/L (15-37); Alanine Aminotransfer ALT/SGPT 34 U/L (13-56); Albumin, Serum 3.6 g/dL (3.2-5.0); Alkaline Phosphatase 97 U/L (45-117); Anion Gap 6 (5-15); BUN 10 mg/dL (7-18); BUN/Creat Ratio 10.7 RATIO (10-20); Calcium,Total 9.1 mg/dL (8.5-10.1); Chloride 103 mmol/L (98-107); Creatinine, Serum 0.93 mg/dL (0.55-1.02); EST Glomerular Filtration Rate 64 mL/min (>60); Est Glom Filt Rate - Afr Amer 77 mL/min (>60); Glucose 135 mg/dL (74-106); Potassium 3.7 mmol/L (3.5-5.1); Protein, Total 7.6 g/dL (6.4-8.2); Sodium Level 135 mmol/L (136-145); Thyroid Stim Hormone (TSH) 1.09 uIU/mL (0.358-3.74); Vitamin D,25 Hydroxy 31.7 ng/mL
[2023-09-08 13:40] LABS: Hemoglobin A1c 6.6 % (3.8-5.6)
== END | disposition home or self-care (01) ==
LOC: POLAB3 10:52
PROVIDERS: PCP Family Medicine Geriatric Medicine; Visit Provider Family Medicine Geriatric Medicine
DX: E55.9 Vitamin D deficiency, unspecified (principal); R53.83 Other fatigue; R73.9 Hyperglycemia, unspecified
CPT/HCPCS: 36415; 80053; 82306; 83036; 84443; 85025

== ENCOUNTER 2023-09-22 10:35 | Outpatient (RCR) | payer MEDICARE, OTHER, SELFPAY | END 2023-10-14 23:59 | LOC: NS 10:35 | PROVIDERS: PCP Family Medicine Geriatric Medicine; Referring Provider Family Medicine Geriatric Medicine; Visit Provider Family Medicine Geriatric Medicine | DX: Z71.3 Dietary counseling and surveillance (principal); E11.65 Type 2 diabetes mellitus with hyperglycemia | CPT/HCPCS: 97802 ==

== ENCOUNTER → 2023-10-28 | Outpatient (CLI) | payer MEDICARE, OTHER, SELFPAY ==
--- NOTE | 2023-10-28 14:37 | BD_ITS ---
STUDY: DUAL ENERGY X-RAY ABSORPTIOMETRY / DXA REASON FOR EXAM: Female, 63 years old. 733.00OsteoporosisBONE DENSITY REASON FOR EXAM TECHNIQUE: Bone Mineral Density (BMD) measurements of lumbar spine and bilateral hips were obtained. COMPARISON: None. FINDINGS: Lumbar Spine (L1-L4): g/cm2 (1.002) / T-score (-0.4) / Z-score (1.4) Findings are suggestive of normal bone density with a low fracture risk. Left Femur Total: g/cm2 (0.872) / T-score (-0.6) / Z-score (0.7) Left Femoral Neck: g/cm2 (0.660) / T-score (-1.7) / Z-score (-0.2) Right Femur Total: g/cm2 (0.863) / T-score (-0.6) / Z-score (0.6) Right Femoral Neck: g/cm2 (0.680) / T-score (-1.5) / Z-score (0.0) BD/Dexa Bone Density Study IMPRESSION: The patient is considered osteopenic as outlined below according to World Chris Organization (WHO) criteria with a moderate fracture risk. Reference Information: The T-score is the number of standard deviations above or below the standard which is normal for young adults at their peak bone mineral density. The World Health Organization (WHO) interprets the T-scores as follows: Above -1 Normal bone density Between -1 and -2.5 Osteopenia Equal to / or below -2.5 Osteoporosis As a practical clinical guideline, osteopenia may be graded as follows: Mild -1 through -1.5 Moderate -1.6 through -2.0 Severe -2.1 through -2.4 The Z-score is the number of standard deviations above or below age-matched controls. A Z-score of less than -1.5 would be considered abnormal. References: 1. NIH Osteoporosis and Related Bone Diseases www osteo.org 2. International Society for Clinical Densitometry www iscd.org 3. National Osteoporosis Foundation www nof.org Electronically Signed: Cholo Clark MD at 14:33 EST ,
== END | disposition home or self-care (01) ==
LOC: OPBD 14:32
PROVIDERS: PCP Family Medicine Geriatric Medicine
DX: M81.0 Age-related osteoporosis without current pathological fracture (principal)
CPT/HCPCS: 77080

== ENCOUNTER 2023-11-29 14:07 | Outpatient (RCR) | payer MEDICARE, OTHER, SELFPAY | END 2023-12-15 23:59 | LOC: DC 14:07 | PROVIDERS: PCP Family Medicine Geriatric Medicine; Referring Provider Family Medicine Geriatric Medicine; Visit Provider Family Medicine Geriatric Medicine | DX: E11.65 Type 2 diabetes mellitus with hyperglycemia (principal) | CPT/HCPCS: 97803 ==

== ENCOUNTER → 2023-12-17 | Outpatient (CLI) | payer MEDICARE, OTHER, SELFPAY | END | disposition home or self-care (01) | LOC: PSN 12:13 | PROVIDERS: PCP Family Medicine Geriatric Medicine; Referring Provider Family Medicine Geriatric Medicine; Visit Provider Family Medicine Geriatric Medicine | DX: R68.83 Chills (without fever) (principal) | CPT/HCPCS: 87631 ==

== ENCOUNTER → 2024-01-21 | Outpatient (CLI) | payer MEDICARE, OTHER, SELFPAY ==
--- NOTE | 2024-01-21 12:52 | CT_ITS ---
INDICATION: F/U -- TRIPHASIC, PANCREAS PROTOCOL EXAMINATION: CT Abdomen And Pelvis WO/W Contrast Injection TECHNIQUE: Helically acquired images were obtained of the abdomen and pelvis before and after IV contrast. A radiation dose optimization technique was used for this scan. IV Contrast dosage and agent: IV 75mL [id number] Oral contrast: None. COMPARISON: 05/12/2023. FINDINGS: Visualized lung bases: Unremarkable Liver: Stable small hepatic cysts. Gallbladder: Unremarkable Spleen: The spleen is surgically absent. Pancreas: Postsurgical changes status post resection of the body and tail of the pancreas. No evidence of residual or recurrent disease. Adrenal Glands: Unremarkable Kidneys: The right kidney is surgically absent. Vasculature: Unremarkable GI Tract: Unremarkable Lymphadenopathy: Grossly stable 5 mm peripancreatic lymph node. Peritoneum: No ascites. Bladder: Unremarkable Reproductive organs: Unremarkable Bones/Soft tissues: Mild scattered degenerative changes of the visualized spine. Small fat-containing umbilical hernia. CT/CT Abd/Pelvis W/WO Contrast IMPRESSION: No evidence of recurrent or metastatic disease in the abdomen. Stable 5 mm peripancreatic lymph node. Recommend close attention on follow-up. Small fat-containing umbilical hernia. Electronically Signed: Jose David Wood MD at 0:32 EST ,
--- NOTE | 2024-01-21 12:52 | CT_ITS ---
INDICATION: F/U malignant neuroendocrine tumor EXAMINATION: CT CHEST WITH CONTRAST - CT Chest W/ Contrast Injection TECHNIQUE: Helically acquired images were obtained of the chest following IV contrast. A radiation dose optimization technique was used for this scan. IV Contrast dosage and agent: COMPARISON: 05/12/2023 FINDINGS: LUNGS, PLEURA AND LARGE AIRWAYS: Mild bilateral apical scarring. Improved appearance of scarring in the inferior lingula. No new noncalcified nodule or mass. No pleural effusion or thickening. No pneumothorax. THYROID: No thyroid lesions. HEART AND PERICARDIUM: Heart size is normal. No pericardial effusion. VESSELS: Thoracic aorta is not dilated. No aortic dissection. No obvious central pulmonary embolism although this study was not performed with the pulmonary embolism protocol. MEDIASTINUM AND CLIFTON: No mediastinal or hilar adenopathy. Esophagus is unremarkable. No hiatal hernia. UPPER ABDOMEN: No acute pathology. BONES: Mild S-shaped scoliosis of the thoracic spine. CT/Chest WITH Contrast IMPRESSION: No CT evidence of metastatic disease. Electronically Signed: Jr Veronica MD at 18:35 EST ,
[2024-01-21 13:18] LABS: CREATININE FINGERSTICK < 1.0 mg/dL (0.55-1.02)
[2024-01-21 13:30] LABS: Absolute Lymphocyte Count 3.13 X10^3/uL (0.83-4.51); Basophil# 0.13 X10^3/uL; Basophil% 1.4 % (0-1); Eosinophil# 0.14 X10^3/uL; Eosinophils% 1.5 % (0-5); Hematocrit 45.1 % (37-47); Hemoglobin 14.7 g/dL (12.0-15.0); Lymphocyte # 3.13 X10^3/ul (0.83-4.51); Lymphocyte % 33.2 % (19-41); Mean Corp Hgb Conc 32.6 g/dL (32-36); Mean Corpuscular Hgb 30.1 pg (27.0-32.0); Mean Corpuscular Volume 92.4 fL (81-99); Mean Platelet Vol. 8.7 fl (6.2-12.0); Monocyte# 0.96 X10^3/uL; Monocyte% 10.2 % (0-10); NRBC Flagged by Analyzer 0 % (0-5); Neutrophil # 5.02 X10^3/uL (2.7-7.7); Neutrophil % 53.3 % (47-70); Platelet Count 512 K/mm3 (150-450); RBC Distribution Width CV 13.8 % (11.6-14.6); RBC Distribution Width SD 46.8 fl (35.1-43.9); Red Blood Count 4.88 M/mm3 (4.2-5.4); White Blood Count 9.4 K/mm3 (4.4-11.0)
[2024-01-21 13:58] LABS: AST(SGOT) 32 U/L (15-37); Alanine Aminotransfer ALT/SGPT 62 U/L (13-56); Albumin, Serum 3.8 g/dL (3.2-5.0); Alkaline Phosphatase 89 U/L (45-117); Anion Gap 6 (5-15); BUN 12 mg/dL (7-18); BUN/Creat Ratio 13.7 RATIO (10-20); Calcium,Total 9.4 mg/dL (8.5-10.1); Chloride 97 mmol/L (98-107); Creatinine, Serum 0.88 mg/dL (0.55-1.02); EST Glomerular Filtration Rate 69 mL/min (>60); Est Glom Filt Rate - Afr Amer 83 mL/min (>60); Glucose 91 mg/dL (74-106); Protein, Total 7.8 g/dL (6.4-8.2); Sodium Level 132 mmol/L (136-145)
== END | disposition home or self-care (01) ==
LOC: CT 12:38
PROVIDERS: PCP Family Medicine Geriatric Medicine; Referring Provider Internal Medicine Hematology & Oncology; Visit Provider Internal Medicine Hematology & Oncology
DX: C7A.8 Other malignant neuroendocrine tumors (principal)
CPT/HCPCS: 36415; 71260; 74178; 80053; 85025; Q9967; A4216

== ENCOUNTER → 2024-02-28 | Outpatient (CLI) | payer MEDICARE, OTHER, SELFPAY ==
--- NOTE | 2024-02-28 13:04 | US_ITS ---
INDICATION: yearly EXAMINATION: Ultrasound US Thyroid (eg thyroid, parathyroid, parotid) TECHNIQUE: Brito scale and color doppler imaging was performed of the thyroid gland. COMPARISON: 03/01/2023. FINDINGS: RIGHT THYROID LOBE: Measures 5.5 x 1.7 x 1.6 cm. Homogeneous echotexture with normal vascularity. [There is a 1.3 x 0.7 cm hypoechoic well-circumscribed solid nodule in the right upper pole with macrocalcifications. It is grossly stable in size when compared to prior on 03/01/2023. LEFT THYROID LOBE: Measures 4.2 x 1.2 x 1.4 cm. Homogeneous echotexture with normal vascularity. [No thyroid nodules are present. ISTHMUS: Measures 3 mm.. No thyroid nodules are present. US/Thyroid IMPRESSION: Stable 1.3 cm TI-RADS 4 nodule in the right upper pole. Recommend continued follow-up US in one year. Electronically Signed: Jose David Wood MD at 20:03 EDT ,
== END | disposition home or self-care (01) ==
LOC: US 13:04
PROVIDERS: PCP Family Medicine Geriatric Medicine; Referring Provider Surgery; Visit Provider Surgery
DX: E04.1 Nontoxic single thyroid nodule (principal)
CPT/HCPCS: 76536

== ENCOUNTER → 2024-03-09 | Outpatient (CLI) | payer MEDICARE, OTHER, SELFPAY ==
[2024-03-09 12:18] LABS: Absolute Lymphocyte Count 2.52 X10^3/uL (0.83-4.51); Absolute Neutrophil Count 3.8 X10^3/uL (2.0-7.7); Basophil# 0.11 X10^3/uL; Basophil% 1.5 % (0-1); Eosinophil# 0.12 X10^3/uL; Eosinophils% 1.6 % (0-5); Hemoglobin 14.7 g/dL (12.0-15.0); Lymphocyte # 2.52 X10^3/ul (0.83-4.51); Lymphocyte % 34.1 % (19-41); Mean Corp Hgb Conc 32.7 g/dL (32-36); Mean Corpuscular Hgb 30.2 pg (27.0-32.0); Mean Corpuscular Volume 92.6 fL (81-99); Mean Platelet Vol. 8.6 fl (6.2-12.0); Monocyte# 0.82 X10^3/uL; Monocyte% 11.1 % (0-10); NRBC Flagged by Analyzer 0 % (0-5); Neutrophil # 3.77 X10^3/uL (2.7-7.7); Neutrophil % 51.2 % (47-70); Platelet Count 437 K/mm3 (150-450); RBC Distribution Width CV 13.2 % (11.6-14.6); RBC Distribution Width SD 45.1 fl (35.1-43.9); Red Blood Count 4.86 M/mm3 (4.2-5.4); White Blood Count 7.4 K/mm3 (4.4-11.0)
[2024-03-09 12:40] LABS: Vitamin D,25 Hydroxy 33.8 ng/mL
[2024-03-09 12:48] LABS: ALB/GLOB Ratio 0.9 RATIO (0.9-2.4); AST(SGOT) 23 U/L (15-37); Alanine Aminotransfer ALT/SGPT 52 U/L (13-56); Albumin, Serum 3.7 g/dL (3.2-5.0); Alkaline Phosphatase 85 U/L (45-117); Anion Gap 8 (5-15); BUN 13 mg/dL (7-18); BUN/Creat Ratio 15.9 RATIO (10-20); Calcium,Total 9.3 mg/dL (8.5-10.1); Chloride 101 mmol/L (98-107); Creatinine, Serum 0.82 mg/dL (0.55-1.02); EST Glomerular Filtration Rate 75 mL/min (>60); Est Glom Filt Rate - Afr Amer 90 mL/min (>60); Globulin 3.9 g/dL (2.2-4.2); Glucose 82 mg/dL (74-106); Potassium 3.9 mmol/L (3.5-5.1); Protein, Total 7.6 g/dL (6.4-8.2); Sodium Level 133 mmol/L (136-145); Thyroid Stim Hormone (TSH) 1.02 uIU/mL (0.358-3.74)
== END | disposition home or self-care (01) ==
LOC: LAB 11:21
PROVIDERS: PCP Family Medicine Geriatric Medicine; Referring Provider Family Medicine Geriatric Medicine; Visit Provider Family Medicine Geriatric Medicine
DX: E11.65 Type 2 diabetes mellitus with hyperglycemia (principal); E55.9 Vitamin D deficiency, unspecified; R53.83 Other fatigue
CPT/HCPCS: 36415; 80053; 82306; 84443; 85025

== ENCOUNTER → 2024-07-26 | Outpatient (CLI) | payer MEDICARE, OTHER, SELFPAY ==
--- NOTE | 2024-07-26 13:52 | CDU_ITS ---
Reason For Study: Transient visual loss, left eye Rt. Velocities/BP Lt. Velocities/BP Prox CCA 78.7/11.6 cm/sec. Prox CCA 113.3/18.8 cm/sec. Mid CCA 72.1/13.5 cm/sec. Mid CCA 72.8/12.6 cm/sec. Dist CCA 64.5/15.4 cm/sec. Dist CCA 61.8/11.4 cm/sec. Prox ICA 57.5/17.9 cm/sec. Prox ICA 60.5/18.8 cm/sec. Mid ICA 83.9/26.7 cm/sec. Mid ICA 74/23.7 cm/sec. Dist ICA 122.9/31.6 cm/sec. Dist ICA 102.3/29.8 cm/sec. Rt. ICA/CCA = 1.70. Lt. ICA/CCA = 1.41. Prox ECA 100.3/8 cm/sec. Prox ECA 83.9/7.7 cm/sec. Rt. Vert. 67.4/14.6 cm/sec. Lt. Vert. 86.3/13.9 cm/sec. Right Extracranial There is intimal thickening but no significant atherosclerotic plaque noted in the right common carotid artery. There is intimal thickening but no significant atherosclerotic plaque noted in the right internal carotid artery. There is intimal thickening but no significant atherosclerotic plaque noted in the right external carotid artery. Antegrade flow is noted in the right vertebral artery. There is homogeneous, smooth atherosclerotic plaque noted in the left bulb. Left Extracranial There is intimal thickening but no significant atherosclerotic plaque noted in the left common carotid artery. There is heterogeneous, irregular atherosclerotic plaque noted in the left internal carotid artery. There is intimal thickening but no significant atherosclerotic plaque noted in the left external carotid artery. Antegrade flow is noted in the left vertebral artery. Procedure Carotid Duplex 13003. This is a Carotid Duplex examination using B-mode, color flow and specral Doppler. Exam performed in department. VL/Carotid Duplex Ultrasound Interpretation Summary Normal right extracranial internal carotid. Mild (<50%) stenosis left extracranial internal carotid. Patent and antegrade vertebrals bilaterally. Ordering Physician: Robert Brothers Referring Physician: Danilo Medina Chi Performed By: Christina Rich RVT
== END | disposition home or self-care (01) ==
LOC: CVS 13:51
PROVIDERS: PCP Family Medicine Geriatric Medicine; Referring Provider Ophthalmology; Visit Provider Ophthalmology
DX: H53.122 Transient visual loss, left eye (principal)
CPT/HCPCS: 93880

== ENCOUNTER → 2024-08-30 | Outpatient (CLI) | payer MEDICARE, OTHER, SELFPAY ==
--- NOTE | 2024-08-30 17:19 | RAD_ITS ---
EXAM: XR LEFT FINGERS, 2 OR MORE VIEWS CLINICAL INDICATION: PAIN TECHNIQUE: Frontal, lateral and oblique views of the fingers of the left hand. COMPARISON: No relevant prior studies available. FINDINGS: BONES/JOINTS: Degenerative findings of the first carpal metacarpal joint. No acute fracture. No subluxation. Normal alignment. No sclerotic or destructive changes observed. SOFT TISSUES: Unremarkable. No soft tissue swelling or gas. No radiopaque foreign body. RAD/Finger(s) Min 2 Views IMPRESSION: Degenerative findings of the first carpal metacarpal joint. Electronically Signed: Des Holt MD at 19:32 EDT ,
--- NOTE | 2024-08-30 17:19 | RAD_ITS ---
EXAM: XR LEFT WRIST, 2 VIEWS CLINICAL INDICATION: L CARPAL TUNNEL SYNDROME TECHNIQUE: Frontal and lateral views of the left wrist. COMPARISON: No relevant prior studies available. FINDINGS: BONES/JOINTS: There is focal articular narrowing and sclerosis at the base of the thumb. No acute fracture. No subluxation. Normal alignment. SOFT TISSUES: Unremarkable. No radiopaque foreign body. No significant soft tissue swelling. RAD/Wrist 2 Views IMPRESSION: Degenerative changes of the base of the thumb. Electronically Signed: Archana Monet MD at 19:31 EDT ,
== END | disposition home or self-care (01) ==
LOC: RAD 17:11
PROVIDERS: PCP Family Medicine Geriatric Medicine; Referring Provider Family Medicine Geriatric Medicine; Visit Provider Family Medicine Geriatric Medicine
DX: M79.645 Pain in left finger(s) (principal); G56.02 Carpal tunnel syndrome, left upper limb
CPT/HCPCS: 73100; 73140

== ENCOUNTER → 2024-09-02 | Outpatient (CLI) | payer MEDICARE, OTHER, SELFPAY ==
--- NOTE | 2024-09-02 08:30 | MRI_ITS ---
EXAM: MR THORACIC AND LUMBAR SPINE WITHOUT INTRAVENOUS CONTRAST CLINICAL INDICATION: THORACOLUMBAR LUMBOSACRAL INTERVERT DISC DISORDER, RADICULOPATHY TECHNIQUE: Multiplanar and multisequence MR images of the thoracic and lumbar spine without intravenous contrast. COMPARISON: CT abdomen and pelvis, 01/21/2024. FINDINGS: VERTEBRAE: Multiple small vertebral body hemangiomas are identified. No suspicious marrow space signal abnormality is present. Multiple Schmorl''s nodes are present throughout the thoracic spine. No fracture. Normal alignment. There is preservation of the normal thoracic kyphosis and lumbar lordosis. No scoliosis. INTERSPACES: Multilevel intervertebral disc height loss and disc desiccation throughout the thoracic spine. SPINAL CORD: The spinal cord is normal in signal and morphology. No significant mass effect upon the spinal cord. Normal conus medullaris. SOFT TISSUES: No significant abnormality. LUNGS AND PLEURAL SPACES: Mild cardiomegaly without apparent pericardial effusion. LIVER: Likely cyst in the caudate lobe of the liver for which no follow-up is indicated. DISCS/SPINAL CANAL/NEURAL FORAMINA: THORACIC: Multiple small thoracic disc herniations. In the thoracic region, there is no significant spinal canal or neural foraminal stenosis. L1-L2: Mild bilateral facet arthrosis. No disc herniation, spinal canal stenosis, or neural foraminal narrowing. L2-L3: Disc height loss and disc desiccation. Disc bulge with small superimposed central disc herniation and mild bilateral facet arthrosis. Mild spinal canal stenosis. No significant neural foraminal narrowing. L3-L4: Disc height loss and disc desiccation. Disc bulge with small superimposed central disc herniation and moderate bilateral facet arthrosis. Mild spinal canal stenosis and [id number] bilateral neural foraminal narrowing. L4-L5: Disc height loss and disc desiccation. Central disc herniation superimposed upon a disc bulge and moderate bilateral facet arthrosis with ligamentum flavum thickening. Mild spinal canal stenosis and mild bilateral neural foraminal narrowing. L5-S1: Disc height loss and disc desiccation. Right central disc herniation superimposed upon a disc bulge and moderate bilateral facet arthrosis. Moderate spinal canal and bilateral neural foraminal narrowing. Impingement of the right S1 nerve root and abutment of the left S1 nerve root without definite impingement. MRI/Spine Thoracic (Routine) IMPRESSION: 1. Mild cardiomegaly without apparent pericardial effusion. 2. Multilevel degenerative changes in the thoracic spine. No critical spinal canal stenosis and no spinal cord signal abnormality. 3. Degenerative changes throughout the lumbar spine detailed above. Resultant impingement of the right S1 nerve root. Correlate for associated symptoms. Electronically Signed: Priyank Goel DO at 22:08 EDT ,
--- NOTE | 2024-09-02 08:30 | MRI_ITS ---
EXAM: MR THORACIC AND LUMBAR SPINE WITHOUT INTRAVENOUS CONTRAST CLINICAL INDICATION: THORACOLUMBAR LUMBOSACRAL INTERVERT DISC DISORDER, RADICULOPATHY TECHNIQUE: Multiplanar and multisequence MR images of the thoracic and lumbar spine without intravenous contrast. COMPARISON: CT abdomen and pelvis, 01/21/2024. FINDINGS: VERTEBRAE: Multiple small vertebral body hemangiomas are identified. No suspicious marrow space signal abnormality is present. Multiple Schmorl''s nodes are present throughout the thoracic spine. No fracture. Normal alignment. There is preservation of the normal thoracic kyphosis and lumbar lordosis. No scoliosis. INTERSPACES: Multilevel intervertebral disc height loss and disc desiccation throughout the thoracic spine. SPINAL CORD: The spinal cord is normal in signal and morphology. No significant mass effect upon the spinal cord. Normal conus medullaris. SOFT TISSUES: No significant abnormality. LUNGS AND PLEURAL SPACES: Mild cardiomegaly without apparent pericardial effusion. LIVER: Likely cyst in the caudate lobe of the liver for which no follow-up is indicated. DISCS/SPINAL CANAL/NEURAL FORAMINA: THORACIC: Multiple small thoracic disc herniations. In the thoracic region, there is no significant spinal canal or neural foraminal stenosis. L1-L2: Mild bilateral facet arthrosis. No disc herniation, spinal canal stenosis, or neural foraminal narrowing. L2-L3: Disc height loss and disc desiccation. Disc bulge with small superimposed central disc herniation and mild bilateral facet arthrosis. Mild spinal canal stenosis. No significant neural foraminal narrowing. L3-L4: Disc height loss and disc desiccation. Disc bulge with small superimposed central disc herniation and moderate bilateral facet arthrosis. Mild spinal canal stenosis and [id number] bilateral neural foraminal narrowing. L4-L5: Disc height loss and disc desiccation. Central disc herniation superimposed upon a disc bulge and moderate bilateral facet arthrosis with ligamentum flavum thickening. Mild spinal canal stenosis and mild bilateral neural foraminal narrowing. L5-S1: Disc height loss and disc desiccation. Right central disc herniation superimposed upon a disc bulge and moderate bilateral facet arthrosis. Moderate spinal canal and bilateral neural foraminal narrowing. Impingement of the right S1 nerve root and abutment of the left S1 nerve root without definite impingement. MRI/Spine Lumbar (Routine) IMPRESSION: 1. Mild cardiomegaly without apparent pericardial effusion. 2. Multilevel degenerative changes in the thoracic spine. No critical spinal canal stenosis and no spinal cord signal abnormality. 3. Degenerative changes throughout the lumbar spine detailed above. Resultant impingement of the right S1 nerve root. Correlate for associated symptoms. Electronically Signed: Priyank Goel DO at 22:08 EDT ,
--- NOTE | 2024-09-02 10:06 | MRI_ITS ---
EXAM: MR PELVIS WITHOUT INTRAVENOUS CONTRAST CLINICAL INDICATION: THORACOLUMBAR LUMBOSACRAL INTERVERT DISC DISORDER, RADICULOPATHY TECHNIQUE: Multiplanar and multisequence MR images of the pelvis without intravenous contrast. COMPARISON: No relevant prior studies available. FINDINGS: APPENDIX: No evidence of acute appendicitis. INTRAPERITONEAL SPACE: Unremarkable. No free fluid in the pelvis. BLADDER: Unremarkable. OVARIES: Unremarkable as visualized. No adnexal masses. UTERUS/CERVIX: Nabothian cysts of the cervix. Somewhat atrophic uterus. Endometrial stripe is normal in thickness and appearance. BONES/JOINTS: At least moderate degenerative disc disease at L5-S1 with no more than moderate degenerative neural foraminal stenosis bilaterally at the same level. No suspicious lytic or blastic abnormality. No unusual marrow signal alterations. SOFT TISSUES: Unremarkable. No pelvic wall hernia. LYMPH NODES: Unremarkable. No enlarged lymph nodes. MRI/Pelvis (Routine) IMPRESSION: 1. No neural impingement. 2. Ancillary findings as above. Electronically Signed: Christiano Caldwell MD at 21:22 EDT ,
== END | disposition home or self-care (01) ==
LOC: MRI 08:13
PROVIDERS: PCP Family Medicine Geriatric Medicine; Referring Provider Family Medicine Geriatric Medicine; Visit Provider Family Medicine Geriatric Medicine
DX: M51.9 Unspecified thoracic, thoracolumbar and lumbosacral intervertebral disc disorder (principal); M54.14 Radiculopathy, thoracic region
CPT/HCPCS: 72146; 72148; 72195

== ENCOUNTER 2024-09-20 15:30 | Outpatient (RCR) | payer MEDICARE, OTHER, SELFPAY ==
--- NOTE | 2024-09-01 16:37 | HP.PTEVAL_ITS ---
Patient's Visit Information Visit Information Visit Information: MANJINDER PRICE is a 64 year old F referred to Physical Therapy by Dr. Danilo Medina MD with a diagnosis of T10 RADICULOPATHY. Date of Evaluation: 09/01/24 Physical Therapist: Joby Ward, PT, Cert MDT, OCS Visit Plan Frequency: 2x /Week Duration: 4 Weeks Plan: NO MODALTIES PT INTERVENTIONS DLS ,POSTURAL EX'S ,THORACIC STRENGTHENING ACTIVITIES MODIFICATION Subjective Subjective: This 64 y/o female presents to physical therapy thoracic pain. Patient has had lumbar pain for ~ 1 month . Patient injury moved dryer ,then developed pain right back pain. Patient seen DR Medina recommended PT and ordered MRI which is being done 09/02/24. Patient has h/o back pain with h/o x-rays 2 years ago. 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 Patient has had bone density last year - for back and mild in hips. Patient aggravating factors sitting ,standing,bending and lifting such as grandchildren. Alleviating factors rest. coughing/sneezing- . Bowel/bladder-. Patient pain affects sleeping . Denies paresthesia/tingling . Symptoms worse with ADL and housework tasks . Patient goals to decrease pain. SOCIAL: VOCATION: [employer] Pain Bilateral Back: Pain Intensity (Out of 10): 3 Pain Intensity Range: 10 Objective Objective: POSTURE: mild forward posture mild thoracic kyphosis SYMMETRIES: asymmetries pelvis GAIT: reciprocal pattern NEURO: denies paresthesia/tingling ,reflexes L3-4 ,L4-5 ,L5- S1 1/3 MMT: BUE grossly 4/5 ,shoulders 4-/5 ,quads/hams/hip 4/5 ,ankle 4/5 FLEXABILITY: hamstring min tight LUMBAR ROM: flexion min loss ,extension mod loss ,side glides mod loss THORACIC ROM: flexion mod tight ,rotation mod tight,extension mod tight Special Tests Thoracic Sitting: Flexion - Mechanical Response: No effect Thoracic Sitting: Flexion - Symptoms During Testing: No effect Thoracic Sitting: Flexion - Symptoms After Testing: No effect Thoracic Sitting: Extension - Mechanical Response: No effect Thoracic Sitting: Extension - Symptoms During Testing: Increases Thoracic Sitting: Extension - Symptoms After Testing: No worse Thoracic Sitting: Right rotation - Mechanical Response: No effect Thoracic Sitting: Right Rotation - Symptoms During Testing: No effect Thoracic Sitting: Right Rotation - Symptoms After Testing: No effect Thoracic Sitting: Left rotation - Mechanical Response: No effect Thoracic Sitting: Left Rotation - Symptoms During Testing: No effect Thoracic Sitting: Left Rotation - Symptoms After Testing: No effect L/S Slump test left side: Negative L/S Slump test right side: Negative L/S Left Straight Leg Raise: Negative L/S Right Straight Leg Raise: Negative Lumbar Standing: Flexion - Mechanical Response: No effect Lumbar Standing: Flexion - Symptoms During Testing: No effect Lumbar Standing: Flexion - Symptoms After Testing: No effect Lumbar Standing: Extension - Mechanical Response: No effect Lumbar Standing: Extension - Symptoms During Testing: Increases Lumbar Standing: Extension - Symptoms After Testing: No worse Lumbar Standing: Right Side Glides - Mechanical Response: No effect Lumbar Standing: Right Side [place] - Symptoms During Testing: No effect Lumbar Standing: Right Side [place] - Symptoms After Testing: No effect Lumbar Standing: Left Side [place] - Mechanical Response: No effect Lumbar Standing: Left Side [place] - Symptoms During Testing: No effect Lumbar Standing: Left Side [place] - Symptoms After Testing: No effect Balance/Special Test Scores Oswestry Low Back Score: 22 Goals Goal 1:: I with HEP for back Goal Time Frame: 4-6 Weeks Goal 2:: Patient to improve lumbar /thoracic ROM for function of recovery for ADLS Goal Time Frame: 4-6 Weeks Goal 3:: Patient to demonstrate 50% improvement with function of ADLS housework Goal Time Frame: 4-6 Weeks Goal 4:: Patient to improve back oswestry score by 5 points to improve QOL and function. Goal Time Frame: 4-6 Weeks Rehabilitation Potential Physical Therapy Diagnosis: Patient has multiple complexity issue but developed thoracic back pain moving dryer with pain during position and motion testing thus benefit from skilled PT Rehabilitation Potential: Good Anticipated Interventions Patient/Client Instruction: Educate patient on: Condition and Plan of Care For the Purpose of:: To decrease pain, To increase ROM, To improve muscle performance and motor function, To improve ability to perform ADL's, To increase tolerance to activity/condition/position, To improve ability of physical actions for home/community/work/leisure, To improve health of tissue, To decrease soft tissue restriction, To increase flexibility/ROM and To improve tolerance to ADL's Therapeutic Exercise to Include: Strength training, Postural training, Flexibilty training, Active ROM and Dynamic Lumbar Stabilization For the Purpose of:: To decrease pain, To increase ROM, To improve muscle performance and motor function, To improve ability to perform ADL's, To increase tolerance to activity/condition/position, To improve ability of physical actions for home/community/work/leisure, To improve health of tissue, To decrease soft tissue restriction, To increase flexibility/ROM, To improve endurance, To improve balance, To reduce risk of recurrence and To improve tolerance to ADL's Text: Thank you for the opportunity to evaluate your patient. For Medicare and Medicare HMO plans, please review the plan of care and approve it. It will need to be FAXED BACK to us at [phone] for Medicare purposes. For Medicare only, by signing this I certify the plan of care. Please let me know if there are questions or concerns regarding this plan of care. Physician Signature: Date:
--- NOTE | 2024-11-16 15:27 | HP.PT.NRP ---
Patient Information Patient Information: MANJINDER PRICE was seen in my office for initial evaluation on 09/01/24. The following Plan of Care was established for this patient: POC Established Initial Frequency: 2x /Week Initial Duration: 4 Weeks Anticipated Interventions Patient/Client Instruction: Educate patient on: Condition and Plan of Care For the Purpose of:: To decrease pain, To increase ROM, To improve muscle performance and motor function, To improve ability to perform ADL's, To increase tolerance to activity/condition/position, To improve ability of physical actions for home/community/work/leisure, To improve health of tissue, To decrease soft tissue restriction, To increase flexibility/ROM and To improve tolerance to ADL's Therapeutic Exercise to Include: Strength training, Postural training, Flexibilty training, Active ROM and Dynamic Lumbar Stabilization For the Purpose of:: To decrease pain, To increase ROM, To improve muscle performance and motor function, To improve ability to perform ADL's, To increase tolerance to activity/condition/position, To improve ability of physical actions for home/community/work/leisure, To improve health of tissue, To decrease soft tissue restriction, To increase flexibility/ROM, To improve endurance, To improve balance, To reduce risk of recurrence and To improve tolerance to ADL's Last Seen Last Seen: This patient was last seen in our office . Pertinent comments regarding their Physical therapy will appear below: Patient was seen for back for thoracic pain for HEP and D/C At this point I will be discontinuing this patient from physical therapy. I would be happy to see this patient again in the future if found appropriate by the physician. Thank you! Joby Ward, PT, Cert MDT, OCS Balance/Gait/Functional tests Balance/Special Test Scores Oswestry Low Back Score: 22
== END 2024-09-20 19:00 | disposition home or self-care (01) ==
LOC: PT 15:30
PROVIDERS: PCP Family Medicine Geriatric Medicine; Referring Provider Family Medicine Geriatric Medicine; Visit Provider Family Medicine Geriatric Medicine
DX: M54.14 Radiculopathy, thoracic region (principal)
CPT/HCPCS: 97110; 97162

== ENCOUNTER → 2024-09-21 | Outpatient (CLI) | payer MEDICARE, OTHER, SELFPAY | END | disposition home or self-care (01) | LOC: OPBI 14:12 | PROVIDERS: PCP Family Medicine Geriatric Medicine; Referring Provider Internal Medicine Hematology & Oncology; Visit Provider Internal Medicine Hematology & Oncology | DX: Z12.31 Encounter for screening mammogram for malignant neoplasm of breast (principal) | CPT/HCPCS: 77063; 77067 ==

== ENCOUNTER → 2024-09-25 | Outpatient (CLI) | payer MEDICARE, OTHER, SELFPAY ==
[2024-09-25 15:59] LABS: Absolute Lymphocyte Count 3.02 X10^3/uL (0.83-4.51); Absolute Neutrophil Count 5.7 X10^3/uL (2.0-7.7); Eosinophil# 0.18 X10^3/uL; Eosinophils% 1.8 % (0-5); Hematocrit 42.2 % (37-47); Hemoglobin 14.5 g/dL (12.0-15.0); Lymphocyte # 3.02 X10^3/ul (0.83-4.51); Lymphocyte % 29.9 % (19-41); Mean Corp Hgb Conc 34.4 g/dL (32-36); Mean Corpuscular Hgb 31.1 pg (27.0-32.0); Mean Corpuscular Volume 90.6 fL (81-99); Monocyte# 1.01 X10^3/uL; NRBC Flagged by Analyzer 0 % (0-5); Neutrophil # 5.72 X10^3/uL (2.7-7.7); Neutrophil % 56.6 % (47-70); Platelet Count 494 K/mm3 (150-450); RBC Distribution Width CV 12.6 % (11.6-14.6); RBC Distribution Width SD 41.2 fl (35.1-43.9); Red Blood Count 4.66 M/mm3 (4.2-5.4); White Blood Count 10.1 K/mm3 (4.4-11.0)
[2024-09-25 16:21] LABS: Vitamin D,25 Hydroxy 17.8 ng/mL
[2024-09-25 16:34] LABS: ALB/GLOB Ratio 0.9 RATIO (0.9-2.4); AST(SGOT) 28 U/L (15-37); Alanine Aminotransfer ALT/SGPT 48 U/L (13-56); Albumin, Serum 3.6 g/dL (3.2-5.0); Alkaline Phosphatase 90 U/L (45-117); Anion Gap 9 (5-15); BUN 13 mg/dL (7-18); BUN/Creat Ratio 11.8 RATIO (10-20); Calcium,Total 9.2 mg/dL (8.5-10.1); Chloride 93 mmol/L (98-107); EST Glomerular Filtration Rate 53 mL/min (>60); Est Glom Filt Rate - Afr Amer 64 mL/min (>60); Globulin 4.1 g/dL (2.2-4.2); Glucose 331 mg/dL (74-106); Potassium 4.1 mmol/L (3.5-5.1); Protein, Total 7.7 g/dL (6.4-8.2); Sodium Level 128 mmol/L (136-145)
== END | disposition home or self-care (01) ==
LOC: POLAB3 15:37
PROVIDERS: PCP Family Medicine Geriatric Medicine; Visit Provider Family Medicine Geriatric Medicine
DX: E11.65 Type 2 diabetes mellitus with hyperglycemia (principal); R53.83 Other fatigue; E55.9 Vitamin D deficiency, unspecified
CPT/HCPCS: 36415; 80053; 82306; 84443; 85025

== ENCOUNTER → 2024-10-09 | Outpatient (CLI) | payer MEDICARE, OTHER, SELFPAY ==
[2024-10-09 14:26] LABS: Anion Gap 7 (5-15); BUN 12 mg/dL (7-18); BUN/Creat Ratio 11.8 RATIO (10-20); Calcium,Total 9.3 mg/dL (8.5-10.1); Chloride 98 mmol/L (98-107); Creatinine, Serum 1.02 mg/dL (0.55-1.02); EST Glomerular Filtration Rate 58 mL/min (>60); Est Glom Filt Rate - Afr Amer 70 mL/min (>60); Glucose 164 mg/dL (74-106); Potassium 4.7 mmol/L (3.5-5.1); Sodium Level 131 mmol/L (136-145)
== END | disposition home or self-care (01) ==
PROVIDERS: PCP Family Medicine Geriatric Medicine; Referring Provider Family Medicine Geriatric Medicine; Visit Provider Family Medicine Geriatric Medicine
DX: E87.1 Hypo-osmolality and hyponatremia (principal)
CPT/HCPCS: 36415; 80048

== ENCOUNTER → 2024-10-23 | Outpatient (CLI) | payer MEDICARE, OTHER, SELFPAY | END | disposition home or self-care (01) | LOC: POLAB3 11:13 | PROVIDERS: PCP Family Medicine Geriatric Medicine; Visit Provider Family Medicine Geriatric Medicine | DX: R68.83 Chills (without fever) (principal) | CPT/HCPCS: 87631 ==

== ENCOUNTER → 2024-11-20 | Outpatient (CLI) | payer MEDICARE, OTHER, SELFPAY ==
--- NOTE | 2024-11-20 10:21 | VDLE_ITS ---
Reason For Study: Edema RLE RIGHT LEFT GSV is normal. CFV is compressible, spontaneous, phasic, CFV is compressible, spontaneous, phasic, competent, and demonstrates normal competent and demonstrates normal augmentation. augmentation. FV is compressible, spontaneous, phasic, competent and demonstrates normal augmentation. POP V is compressible, spontaneous, phasic, competent and demonstrates normal augmentation. T/P Trunk is compressible. PTV is compressible. RT PerV is compressible. Procedure This is a venous duplex using B-mode, color flow and spectral Doppler. Exam performed in department. A preliminary report was called and/or faxed to Dr. Medina. VL/Venous Duplex US, Unilateral Interpretation Summary Deep veins of the right lower extremity are patent and compressible segmentally . There is no evidence of right lower extremity deep vein thrombosis. The right great sapheno us vein appears patent and compressible segmentally. Ordering Physician: Danilo Medina Chi Referring Physician: Danilo Medina Chi Performed By: Marium Henning RDCS, RVT
[2024-11-20 11:32] LABS: Absolute Lymphocyte Count 3.61 X10^3/uL (0.83-4.51); Absolute Neutrophil Count 5.3 X10^3/uL (2.0-7.7); Basophil# 0.13 X10^3/uL; Basophil% 1.2 % (0-1); Eosinophil# 0.34 X10^3/uL; Eosinophils% 3.2 % (0-5); Hematocrit 42.7 % (37-47); Hemoglobin 14.3 g/dL (12.0-15.0); Lymphocyte # 3.61 X10^3/ul (0.83-4.51); Lymphocyte % 34.3 % (19-41); Mean Corp Hgb Conc 33.5 g/dL (32-36); Mean Corpuscular Hgb 30.2 pg (27.0-32.0); Mean Corpuscular Volume 90.1 fL (81-99); Mean Platelet Vol. 8.7 fl (6.2-12.0); Monocyte# 1.04 X10^3/uL; Monocyte% 9.9 % (0-10); NRBC Flagged by Analyzer 0 % (0-5); Neutrophil # 5.34 X10^3/uL (2.7-7.7); Neutrophil % 50.8 % (47-70); Platelet Count 474 K/mm3 (150-450); RBC Distribution Width CV 13.2 % (11.6-14.6); RBC Distribution Width SD 43.5 fl (35.1-43.9); Red Blood Count 4.74 M/mm3 (4.2-5.4); White Blood Count 10.5 K/mm3 (4.4-11.0)
[2024-11-20 12:09] LABS: Anion Gap 6 (5-15); BUN 10 mg/dL (7-18); BUN/Creat Ratio 10.6 RATIO (10-20); Calcium,Total 9.7 mg/dL (8.5-10.1); Chloride 94 mmol/L (98-107); Creatinine, Serum 0.94 mg/dL (0.55-1.02); EST Glomerular Filtration Rate 63 mL/min (>60); Est Glom Filt Rate - Afr Amer 76 mL/min (>60); Glucose 334 mg/dL (74-106); Magnesium 2.3 mg/dL (1.6-2.6); Phosphorus 3.4 mg/dL (2.5-4.9); Potassium 4.1 mmol/L (3.5-5.1); Sodium Level 128 mmol/L (136-145)
[2024-11-20 14:49] LABS: Hemoglobin A1c 10.4 % (3.8-5.6)
== END | disposition home or self-care (01) ==
LOC: CVS 10:21
PROVIDERS: PCP Family Medicine Geriatric Medicine; Referring Provider Family Medicine Geriatric Medicine; Visit Provider Family Medicine Geriatric Medicine
DX: M79.604 Pain in right leg (principal); E11.65 Type 2 diabetes mellitus with hyperglycemia; E78.5 Hyperlipidemia, unspecified; R60.0 Localized edema; R25.2 Cramp and spasm
CPT/HCPCS: 36415; 80048; 83036; 83735; 84100; 85025; 93971

== ENCOUNTER → 2024-11-21 | Outpatient (CLI) | payer MEDICARE, OTHER, SELFPAY ==
[2024-11-21 12:25] LABS: Urine Sodium 7 mmol/L (Not Establ.)
[2024-11-21 12:45] LABS: Osmolality, Serum 316 mOsm/KG (280-301); Osmolality, Urine 613 mOsm/KG
== END | disposition home or self-care (01) ==
LOC: LAB 11:33
PROVIDERS: PCP Family Medicine Geriatric Medicine; Referring Provider Family Medicine Geriatric Medicine; Visit Provider Family Medicine Geriatric Medicine
DX: E87.0 Hyperosmolality and hypernatremia (principal)
CPT/HCPCS: 36415; 83930; 83935; 84300

== ENCOUNTER → 2024-11-23 | Outpatient (CLI) | payer MEDICARE, OTHER, SELFPAY ==
[2024-11-24 08:10] LABS: C-Peptide 3.4 ng/mL (1.1-4.4)
== END | disposition home or self-care (01) ==
LOC: LAB 12:09
PROVIDERS: PCP Family Medicine Geriatric Medicine; Referring Provider Family Medicine Geriatric Medicine; Visit Provider Family Medicine Geriatric Medicine
DX: E87.1 Hypo-osmolality and hyponatremia (principal); R73.9 Hyperglycemia, unspecified
CPT/HCPCS: 36415; 84681

== ENCOUNTER → 2024-12-08 | Outpatient (CLI) | payer MEDICARE, OTHER, SELFPAY | END | disposition home or self-care (01) | LOC: POLAB3 10:28 | PROVIDERS: PCP Family Medicine Geriatric Medicine; Visit Provider Family Medicine Geriatric Medicine | DX: R68.83 Chills (without fever) (principal) | CPT/HCPCS: 87631 ==

== ENCOUNTER → 2024-12-25 | Outpatient (CLI) | payer MEDICARE, OTHER, SELFPAY ==
[2024-12-25 16:30] LABS: Absolute Lymphocyte Count 2.79 X10^3/uL (0.83-4.51); Absolute Neutrophil Count 7.5 X10^3/uL (2.0-7.7); Basophil# 0.14 X10^3/uL; Basophil% 1.1 % (0-1); Eosinophil# 0.33 X10^3/uL; Eosinophils% 2.7 % (0-5); Hematocrit 41.5 % (37-47); Lymphocyte # 2.79 X10^3/ul (0.83-4.51); Lymphocyte % 22.7 % (19-41); Mean Corp Hgb Conc 33.7 g/dL (32-36); Mean Corpuscular Hgb 30.9 pg (27.0-32.0); Mean Corpuscular Volume 91.6 fL (81-99); Mean Platelet Vol. 8.5 fl (6.2-12.0); Monocyte# 1.46 X10^3/uL; Monocyte% 11.9 % (0-10); NRBC Flagged by Analyzer 0 % (0-5); Neutrophil # 7.48 X10^3/uL (2.7-7.7); Platelet Count 488 K/mm3 (150-450); RBC Distribution Width CV 13.8 % (11.6-14.6); RBC Distribution Width SD 46.5 fl (35.1-43.9); Red Blood Count 4.53 M/mm3 (4.2-5.4); White Blood Count 12.3 K/mm3 (4.4-11.0)
[2024-12-25 17:04] LABS: Vitamin D,25 Hydroxy 27.7 ng/mL
[2024-12-25 17:06] LABS: ALB/GLOB Ratio 0.9 RATIO (0.9-2.4); AST(SGOT) 25 U/L (15-37); Alanine Aminotransfer ALT/SGPT 33 U/L (13-56); Albumin, Serum 3.5 g/dL (3.2-5.0); Alkaline Phosphatase 67 U/L (45-117); Anion Gap 10 (5-15); BUN 18 mg/dL (7-18); BUN/Creat Ratio 16.7 RATIO (10-20); Calcium,Total 9.6 mg/dL (8.5-10.1); Chloride 98 mmol/L (98-107); Creatinine, Serum 1.08 mg/dL (0.55-1.02); EST Glomerular Filtration Rate 54 mL/min (>60); Est Glom Filt Rate - Afr Amer 65 mL/min (>60); Glucose 98 mg/dL (74-106); Potassium 4.3 mmol/L (3.5-5.1); Protein, Total 7.5 g/dL (6.4-8.2); Sodium Level 132 mmol/L (136-145)
== END | disposition home or self-care (01) ==
LOC: POLAB3 16:10
PROVIDERS: PCP Family Medicine Geriatric Medicine; Visit Provider Family Medicine Geriatric Medicine
DX: R68.83 Chills (without fever) (principal); E11.69 Type 2 diabetes mellitus with other specified complication; E55.9 Vitamin D deficiency, unspecified; R53.83 Other fatigue
CPT/HCPCS: 36415; 80053; 82306; 84443; 85025; 87631

== ENCOUNTER → 2025-01-29 | Outpatient (CLI) | payer MEDICARE, OTHER, SELFPAY ==
--- NOTE | 2025-01-29 13:30 | CT_ITS ---
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 TECHNIQUE: Axial chest CT with intravenous contrast. Coronal and Sagittal reconstruction series were provided. CONTRAST: Isovue-300 VOLUME: 100mL One or more dose reduction techniques were used (e.g., Automated exposure control, adjustment of the mA and/or kV according to patient size, use of iterative reconstruction technique). RADIATION DOSE SUMMARY: CTDlvol: 14.5 mGy DLP: 1413.12 mGycm COMPARISON: Comparison is made with prior study dated January 21, 2024. FINDINGS: Hardware: Stable appearance of the bilateral breast implants. Stable rim-like calcification of both implants more prominent on the right side. Lymph nodes: No suspicious mediastinal lymph nodes are seen. Heart and Vasculature: No coronary artery calcification is present. Lungs and Airways: No suspicious nodular densities are seen. Stable pleural- based thickening along the superior posterior aspect of the left lower lobe. Stable mild scarring in the lingular segment of the left upper lobe. Upper Abdomen: Unremarkable. Bones: Degenerative changes of the thoracic spine. CT/Chest WITH Contrast IMPRESSION: NO CT EVIDENCE OF METASTATIC DISEASE AT THE CHEST. Stable examination. Reading Location: [place] [id number]
--- NOTE | 2025-01-29 13:30 | CT_ITS ---
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 TECHNIQUE: Abdomen CT without and with intravenous contrast. Coronal and Sagittal reconstruction series were provided. One or more dose reduction techniques were used (e.g., Automated exposure control, adjustment of the mA and/or kV according to patient size, use of iterative reconstruction technique. PATIENT PREPARATION: Per protocol ORAL CONTRAST TYPE: None. CONTRAST: Isovue-300 VOLUME: 100mL RADIATION DOSE SUMMARY: CTDlvol: 9 mGy DLP: 1413 mGycm COMPARISON: Comparison is made with prior study dated January 21, 2024. FINDINGS: Lung bases: Unremarkable Bladder breast prostheses with calcification of the peripheral rims of both prostheses worse on the right side. Liver: Subcentimeter cyst in the upper lateral aspect of the right lobe of the liver. There is also evidence of a 1.5 cm cyst in the caudate lobe. Gallbladder: The gallbladder is contracted. The spleen is surgically absent. Pancreas: The patient is status post resection of the body and tail portions of the pancreas. Stable appearance of the uncinate process. Adrenals: Unremarkable Kidneys: The patient is status post right nephrectomy. Bowel: Sigmoid diverticulosis. CT/Abdomen W/WO IV Contrast IMPRESSION: NO ACUTE FINDINGS AT THE ABDOMEN ON CONTRAST-ENHANCED CT. THIS PROTOCOL DOES N OT INCLUDE THE PELVIS. Reading Location: [place] [id number]
[2025-01-29 14:18] LABS: Absolute Lymphocyte Count 2.68 X10^3/uL (0.83-4.51); Absolute Neutrophil Count 5.4 X10^3/uL (2.0-7.7); Basophil% 1.1 % (0-1); Eosinophils% 2.1 % (0-5); Hematocrit 42.7 % (37-47); Hemoglobin 14.3 g/dL (12.0-15.0); Lymphocyte # 2.68 X10^3/ul (0.83-4.51); Lymphocyte % 28.2 % (19-41); Mean Corp Hgb Conc 33.5 g/dL (32-36); Mean Corpuscular Hgb 30.9 pg (27.0-32.0); Mean Corpuscular Volume 92.2 fL (81-99); Mean Platelet Vol. 8.3 fl (6.2-12.0); Monocyte# 1.04 X10^3/uL; Monocyte% 10.9 % (0-10); NRBC Flagged by Analyzer 0 % (0-5); Neutrophil # 5.44 X10^3/uL (2.7-7.7); Neutrophil % 57.2 % (47-70); Platelet Count 489 K/mm3 (150-450); RBC Distribution Width CV 13.3 % (11.6-14.6); RBC Distribution Width SD 45.4 fl (35.1-43.9); Red Blood Count 4.63 M/mm3 (4.2-5.4); White Blood Count 9.5 K/mm3 (4.4-11.0)
[2025-01-29 15:08] LABS: ALB/GLOB Ratio 1.4 RATIO (0.9-2.4); AST(SGOT) 23 U/L (<=31); Alanine Aminotransfer ALT/SGPT 20 U/L (<=34); Albumin, Serum 4.4 g/dL (3.4-4.8); Alkaline Phosphatase 74 U/L (35-104); Anion Gap 12 (5-15); BUN 11 mg/dL (4-19); BUN/Creat Ratio 13.4 RATIO (10-20); Calcium,Total 9.9 mg/dL (7.6-11.0); Carbon Dioxide 23.1 mmol/L (21.0-32.0); Chloride 93 mmol/L (98-108); Creatinine, Serum 0.82 mg/dL (0.70-1.20); EST Glomerular Filtration Rate 79 (>60); Glucose 100 mg/dL (70-99); Potassium 4.2 mmol/L (3.3-5.1); Protein, Total 7.4 g/dL (5.9-8.4); Sodium Level 129 mmol/L (133-145); Total Bilirubin 0.22 mg/dL (0.00-1.30)
== END | disposition home or self-care (01) ==
LOC: CT 12:48 → LAB 13:40
PROVIDERS: PCP Family Medicine Geriatric Medicine; Referring Provider Internal Medicine Hematology & Oncology; Visit Provider Internal Medicine Hematology & Oncology
DX: C7A.8 Other malignant neuroendocrine tumors (principal)
CPT/HCPCS: 36415; 71260; 74170; 80053; 85025; Q9967; A4216

== ENCOUNTER → 2025-04-02 | Outpatient (CLI) | payer MEDICARE, OTHER, SELFPAY ==
[2025-04-02 11:10] LABS: Absolute Lymphocyte Count 3.06 X10^3/uL (0.83-4.51); Absolute Neutrophil Count 3.8 X10^3/uL (2.0-7.7); Basophil# 0.11 X10^3/uL; Basophil% 1.4 % (0-1); Eosinophil# 0.17 X10^3/uL; Eosinophils% 2.1 % (0-5); Hematocrit 44.4 % (37-47); Hemoglobin 15.1 g/dL (12.0-15.0); Lymphocyte # 3.06 X10^3/ul (0.83-4.51); Lymphocyte % 38.2 % (19-41); Mean Corpuscular Hgb 30.6 pg (27.0-32.0); Mean Corpuscular Volume 89.9 fL (81-99); Mean Platelet Vol. 8.5 fl (6.2-12.0); Monocyte# 0.85 X10^3/uL; Monocyte% 10.6 % (0-10); NRBC Flagged by Analyzer 0 % (0-5); Neutrophil % 47.3 % (47-70); Platelet Count 485 K/mm3 (150-450); RBC Distribution Width SD 42.6 fl (35.1-43.9); Red Blood Count 4.94 M/mm3 (4.2-5.4)
[2025-04-02 11:28] LABS: Hemoglobin A1c 6.1 % (<=5.6)
[2025-04-02 12:22] LABS: ALB/GLOB Ratio 1.4 RATIO (0.9-2.4); AST(SGOT) 29 U/L (<=31); Alanine Aminotransfer ALT/SGPT 25 U/L (<=34); Albumin, Serum 4.5 g/dL (3.4-4.8); Alkaline Phosphatase 80 U/L (35-104); Anion Gap 12 (5-15); BUN 9 mg/dL (4-19); BUN/Creat Ratio 11.2 RATIO (10-20); Calcium,Total 9.6 mg/dL (7.6-11.0); Carbon Dioxide 21.8 mmol/L (21.0-32.0); Chloride 96 mmol/L (98-108); Cholesterol 199 mg/dL (<=200); Creatinine, Serum 0.81 mg/dL (0.70-1.20); EST Glomerular Filtration Rate 80 (>60); Globulin 3.3 g/dL (2.2-4.2); Glucose 101 mg/dL (70-99); High Density Lipoprotein 89 mg/dL; Low Density Lipoprotein Calc. 100 mg/dL; Potassium 4.1 mmol/L (3.3-5.1); Protein, Total 7.7 g/dL (5.9-8.4); Sodium Level 131 mmol/L (133-145); Total Bilirubin 0.27 mg/dL (0.00-1.30); Triglycerides 53 mg/dL; Very Low Density Lipoprotein 11 mg/dL (5-40); cholesterol:hdl ratio screen 2.25
[2025-04-02 12:26] LABS: Vitamin D,25 Hydroxy 39.1 ng/mL (30-100)
[2025-04-02 13:01] LABS: Osmolality, Serum 286 mOsm/KG (280-301); Osmolality, Urine 442 mOsm/KG
[2025-04-02 13:25] LABS: Urine Sodium 64 mmol/L (Not Establ.)
== END | disposition home or self-care (01) ==
PROVIDERS: Internal Medicine Endocrinology, Diabetes & Metabolism; PCP Family Medicine Geriatric Medicine; Referring Provider Family Medicine Geriatric Medicine; Visit Provider Family Medicine Geriatric Medicine
DX: E87.1 Hypo-osmolality and hyponatremia (principal); E13.9 Other specified diabetes mellitus without complications; E11.65 Type 2 diabetes mellitus with hyperglycemia; E55.9 Vitamin D deficiency, unspecified; R53.83 Other fatigue; E78.5 Hyperlipidemia, unspecified
CPT/HCPCS: 80053; 80061; 82306; 82533; 83036; 83930; 83935; 84300; 84443; 85025

== ENCOUNTER → 2025-06-14 | Outpatient (CLI) | payer MEDICARE, OTHER, SELFPAY ==
--- NOTE | 2025-06-14 10:26 | NM_ITS ---
PROCEDURE: GASTRIC EMPTYING STUDY 06/14/2025 REASON FOR EXAM: EARLY SATIETY COMPARISON: None. TECHNIQUE: The patient ingested a standard semi solid meal of oatmeal. There was no vomiting postprandially. Anterior and posterior planar images of the upper abdomen were obtained for a total of 60 minutes. Regions of interest were drawn, and a geometric mean was used to calculate a [id number]. Medications taken in the past 24 hours that may affect gastric emptying: None RADIOPHARMACEUTICAL: Technetium 99 M sulfur colloid DOSE 1.2mCi orally with the semi-solid meal. FINDINGS: During the time of imaging, gastroesophageal reflux was not visualized. Linear fit gastric emptying half-time of 35.9 minutes. Raw data fit gastric emptying half time of 33.29 minutes. Gastric emptying at 17.5 minutes of 20%, at 29.5 minutes of 41%, at 47.5 minutes of 65%, and at 59.5 minutes of 71%. NM/Gastric Emptying Study IMPRESSION: Normal semi solid phase gastric emptying. Reading Location: [place] [id number]
== END | disposition home or self-care (01) ==
LOC: NM 10:25
PROVIDERS: PCP Family Medicine Geriatric Medicine; Referring Provider Student in an Organized Health Care Education/Training Program; Visit Provider Student in an Organized Health Care Education/Training Program
DX: R14.0 Abdominal distension (gaseous) (principal); R68.81 Early satiety
CPT/HCPCS: 78264; A9541

== ENCOUNTER → 2025-09-18 | Outpatient (CLI) | payer MEDICARE, OTHER, SELFPAY | END | disposition home or self-care (01) | LOC: POLAB3 15:31 | PROVIDERS: PCP Family Medicine Geriatric Medicine; Visit Provider Family Medicine Geriatric Medicine | DX: R06.2 Wheezing (principal) | CPT/HCPCS: 87631 ==

== ENCOUNTER → 2025-09-26 | Outpatient (CLI) | payer MEDICARE, OTHER, SELFPAY ==
[2025-09-26 12:40] LABS: Hematocrit 42.8 % (37-47); Hemoglobin 14.6 g/dL (12.0-15.0); Immature Granulocytes Count 0.080 X10^3/uL (0.0-0.0); Mean Corp Hgb Conc 34.1 g/dL (32-36); Mean Corpuscular Volume 89.5 fL (81-99); Mean Platelet Vol. 8.8 fl (6.2-12.0); NRBC Flagged by Analyzer 0 % (0-5); Platelet Count 423 K/mm3 (150-450); RBC Distribution Width CV 13.5 % (11.6-14.6); RBC Distribution Width SD 44.5 fl (35.1-43.9); Red Blood Count 4.78 M/mm3 (4.2-5.4); White Blood Count 11.2 K/mm3 (4.4-11.0)
[2025-09-26 12:54] LABS: Creatinine, Urine (random) 127.00 mg/dL (28.00-217.00); Microalbumin,Random Urine < 12.0 mg/L (<20 mg/L)
[2025-09-26 13:30] LABS: AST(SGOT) 26 U/L (<=31); Alanine Aminotransfer ALT/SGPT 26 U/L (<=34); Albumin, Serum 4.4 g/dL (3.4-4.8); Alkaline Phosphatase 65 U/L (35-104); Anion Gap 11 (5-15); BUN 13 mg/dL (4-19); BUN/Creat Ratio 17.7 RATIO (10-20); Calcium,Total 9.8 mg/dL (7.6-11.0); Carbon Dioxide 25.4 mmol/L (21.0-32.0); Chloride 96 mmol/L (98-108); Cholesterol 178 mg/dL (<=200); Globulin 2.9 g/dL (2.2-4.2); Glucose 81 mg/dL (70-99); Low Density Lipoprotein Calc. 85 mg/dL; Potassium 4.1 mmol/L (3.3-5.1); Triglycerides 90 mg/dL; Very Low Density Lipoprotein 18 mg/dL (5-40); Vitamin D,25 Hydroxy 43.1 ng/mL (30-100); cholesterol:hdl ratio screen 2.31
[2025-09-26 13:32] LABS: Osmolality, Serum 277 mOsm/KG (280-301)
== END | disposition home or self-care (01) ==
LOC: LAB 11:44
PROVIDERS: Nurse Practitioner Family; PCP Family Medicine Geriatric Medicine; Referring Provider Family Medicine Geriatric Medicine; Visit Provider Family Medicine Geriatric Medicine
DX: E03.9 Hypothyroidism, unspecified (principal); E11.65 Type 2 diabetes mellitus with hyperglycemia; E78.5 Hyperlipidemia, unspecified; E55.9 Vitamin D deficiency, unspecified; R53.83 Other fatigue
CPT/HCPCS: 36415; 80053; 80061; 82043; 82306; 82570; 83036; 83930; 84443; 85025

== ENCOUNTER → 2025-10-29 | Outpatient (CLI) | payer MEDICARE, OTHER, SELFPAY ==
--- NOTE | 2025-10-29 10:45 | BI_ITS ---
EXAM: SCRN MAMM (CAD)W/MANISH BILAT DATE: 10/29/2025 CLINICAL HISTORY: F, Age 65 y/o , SCREENING TECHNIQUE: Procedure Code: [id number] Modality: MG Procedure: SCRN MAMM (CAD)W/MANISH BILAT COMPARISON: Prior exam(s) were compared FINDINGS: TISSUE DENSITY: The breasts are heterogeneously dense, which may obscure small masses. Bilateral Breast Mammographic Findings: No significant masses, calcifications or other abnormalities are identified. Bilateral breast implants are again noted. BI/SCRN MAMM (CAD)W/MANISH BILAT IMPRESSION: No mammographic evidence of malignancy. OVERALL FINAL ASSESSMENT BI-RADS 2: BENIGN RECOMMENDATION: Routine annual follow-up in 1 Year Additional Recommendation none A letter with findings and recommendations will be mailed to the patient. Reading Location: [id number]
== END | disposition home or self-care (01) ==
LOC: OPBI 10:50
PROVIDERS: PCP Family Medicine Geriatric Medicine; Referring Provider Internal Medicine Hematology & Oncology; Visit Provider Internal Medicine Hematology & Oncology
DX: Z12.31 Encounter for screening mammogram for malignant neoplasm of breast (principal)
CPT/HCPCS: 77063; 77067